=== PATIENT | male | born 1945 | race African-American/Black ===

== ENCOUNTER 2016-12-27 12:51 | Inpatient (IN) | payer MEDICARE, MEDICAID ==
[~2016-12-27] VITALS: Ht 172.7 cm; Wt 70.5 kg
[~2016-12-27 12:51] MED LIST: ALBU6.7H INH; CINA30 PO; CLON0.1T14 PO; COR25 PO; GLIP5TAB12 PO; HYDR100T26 PO; LEVVL SUBCUT; MELO-104 PO; NEPVIT PO; NITR0.4T SL; OXYC-103 PO; P20 PO
[2016-12-27] MEDS ORDERED: ALBUTEROL (0.083%) 2.5MG/3ML NEB HHN STA (14:12)
[2016-12-27] MEDS ORDERED: IPRATROPIUM BROMIDE (0.02%) 0.5MG/2.5ML NEB HHN STA (14:12)
[2016-12-27] MEDS ORDERED: ALBUTEROL (0.083%) 2.5MG/3ML NEB ONE (14:29)
[2016-12-27 15:10] LABS: PROTHROMBIN TIME 10.9 sec (9.4-11.6)
[2016-12-27 15:12] LABS: BASOPHILS % 0.6 % (0.0-2.0); EOSINOPHILS % 5.4 % (0.0-5.0); HEMATOCRIT. 31.4 % (42.0-52.0); HEMOGLOBIN. 10.7 g/dL (14.0-18.0); LYMPHOCYTES % 32.4 % (20.0-50.0); MEAN CORPUSCULAR HEMOGLOBIN 31.9 pg (28.0-32.0); MEAN CORPUSCULAR VOLUME 93.7 fL (80.0-94.0); MEAN PLATELET VOLUME 8.2 fl (7.4-10.4); MONOCYTES % 12.8 % (2.0-8.0); NEUTROPHILS % 48.8 % (40.0-76.0); PLATELET 138 x1000/uL (130-400); RED BLOOD CELL COUNT 3.35 mill/uL (4.7-6.1); RED CELL DISTRIBUTION WIDTH 20.4 % (11.6-14.6)
[2016-12-27 15:16] LABS: CARBON DIOXIDE 30 mEq/L (21-32); CHLORIDE 96 mEq/L (98-107); PHOSPHORUS 3.9 mg/dL (2.5-4.9)
[2016-12-27 15:18] LABS: TROPONIN I 0.03 ng/mL (0.00-0.04)
[2016-12-27 18:22] VITALS: BP 177/102
[2016-12-27] MEDS ORDERED: CLONIDINE 0.1MG TABLET PO PRN ×2 (18:30→22:30)
[2016-12-27 19:40] VITALS: BP 152/95
[2016-12-27 20:00] VITALS: BP 152/95
[2016-12-27] MEDS: INSULIN LISPRO 100 UNITS/ML SUBCUT SCH (21:00)
[2016-12-27] MEDS: METOPROLOL TARTRATE 50MG TABLET PO SCH (21:33)
[2016-12-27] MEDS: BLOOD SUGAR DIAGNOSTIC STRIP TEST SCH (21:34)
[2016-12-27] MEDS ORDERED: ALBUTEROL 6.7GM HFA INHALER INH PRN (22:00)
[2016-12-27] MEDS ORDERED: ALBUTEROL (0.083%) 2.5MG/3ML NEB HHN PRN (22:00)
[2016-12-27] MEDS ORDERED: NITROGLYCERIN 0.4MG TABLET SL SL PRN (22:00)
[2016-12-27] MEDS ORDERED: IPRATROPIUM/ALBUTEROL 0.5-3(2.5)MG/3ML NEB INH PRN (22:30)
[2016-12-27] MEDS ORDERED: HYDROCODONE/ACETAMINOPHEN 5/325MG TABLET PO PRN (22:30)
[2016-12-27] MEDS ORDERED: MORPHINE SULFATE 2 MG/ML CPJ (NOT FOR IM USE) IV PRN (22:30)
[2016-12-27] MEDS: CLONIDINE 0.1MG TABLET PO SCH (22:44)
[2016-12-27] MEDS: INSULIN DETEMIR UD 100 UNITS/ML SYR SUBCUT SCH (22:45)
[2016-12-28] VITALS (7 sets, daily range): BP systolic 110–217; BP diastolic 56–106
[2016-12-28] MEDS: CLONIDINE 0.1MG TABLET PO SCH ×3 (06:04→21:46)
[2016-12-28] MEDS ORDERED: REGADENOSON 0.4 MG/5 ML IV ONE (06:45)
[2016-12-28] MEDS: INSULIN LISPRO 100 UNITS/ML SUBCUT SCH ×4 (07:22→21:47)
[2016-12-28] MEDS: BLOOD SUGAR DIAGNOSTIC STRIP TEST SCH ×4 (07:22→21:47)
[2016-12-28 07:53] LABS: TROPONIN I 0.04 ng/mL (0.00-0.04)
[2016-12-28] MEDS: ENOXAPARIN 30MG/0.3ML SYR SUBCUT SCH (08:25)
[2016-12-28] MEDS: CINACALCET HCL 30MG TABLET PO SCH (08:25)
[2016-12-28] MEDS: FOLIC ACID/VITAMIN B COMP W-C TABLET PO SCH (08:25)
[2016-12-28] MEDS: AMLODIPINE 5MG TABLET PO SCH (08:26)
[2016-12-28] MEDS: PREDNISONE 20MG TABLET PO SCH (08:26)
[2016-12-28] MEDS: GLIPIZIDE 5MG TABLET PO SCH ×2 (08:26→18:36)
[2016-12-28] MEDS: MELOXICAM 7.5MG TABLET PO SCH (08:26)
[2016-12-28] MEDS: FOLIC ACID 1MG TABLET PO SCH (08:26)
[2016-12-28] MEDS: ASPIRIN 81MG EC TABLET PO SCH (08:26)
[2016-12-28] MEDS: HYDRALAZINE HCL 100MG TABLET PO SCH ×3 (08:27→17:00)
[2016-12-28] MEDS: METOPROLOL TARTRATE 50MG TABLET PO SCH ×2 (08:27→21:46)
[2016-12-28] MEDS ORDERED: CARVEDILOL 25MG TABLET PO SCH (09:00)
[2016-12-28] MEDS ORDERED: HEPARIN SODIUM 1,000 UNIT/1ML VIAL IV NR (18:35)
[2016-12-28 18:39] LABS: TROPONIN I 0.02 ng/mL (0.00-0.04)
[2016-12-28 18:40] LABS: CREATINE KINASE MB FRACTION 3.3 ng/mL (0.5-3.6)
[2016-12-28] MEDS: INSULIN DETEMIR UD 100 UNITS/ML SYR SUBCUT SCH (21:46)
[2016-12-28] MEDS: ATORVASTATIN CALCIUM 10MG TABLET PO SCH (21:48)
[2016-12-29] VITALS: BP 123/77
[2016-12-29 04:00] VITALS: BP 116/77
[2016-12-29] MEDS: CLONIDINE 0.1MG TABLET PO SCH ×3 (06:35→21:19)
[2016-12-29 07:33] LABS: BASOPHILS % 0.1 % (0.0-2.0); EOSINOPHILS % 0.4 % (0.0-5.0); HEMOGLOBIN. 11.3 g/dL (14.0-18.0); LYMPHOCYTES % 30.6 % (20.0-50.0); MEAN CORPUSCULAR HEMOGLOBIN 31.8 pg (28.0-32.0); MEAN CORPUSCULAR VOLUME 92.7 fL (80.0-94.0); MEAN PLATELET VOLUME 8.5 fl (7.4-10.4); MONOCYTES % 11.8 % (2.0-8.0); NEUTROPHILS % 57.1 % (40.0-76.0); PLATELET 132 x1000/uL (130-400); RED BLOOD CELL COUNT 3.56 mill/uL (4.7-6.1); RED CELL DISTRIBUTION WIDTH 20.3 % (11.6-14.6)
[2016-12-29] MEDS: BLOOD SUGAR DIAGNOSTIC STRIP TEST SCH ×4 (07:40→20:26)
[2016-12-29 08:00] VITALS: BP 134/61
[2016-12-29 08:35] LABS: TROPONIN I 0.03 ng/mL (0.00-0.04)
[2016-12-29] MEDS: FOLIC ACID/VITAMIN B COMP W-C TABLET PO SCH (10:18)
[2016-12-29] MEDS: GLIPIZIDE 5MG TABLET PO SCH ×2 (10:18→17:51)
[2016-12-29] MEDS: HYDRALAZINE HCL 100MG TABLET PO SCH ×3 (10:19→17:53)
[2016-12-29] MEDS: FOLIC ACID 1MG TABLET PO SCH (10:20)
[2016-12-29] MEDS: CINACALCET HCL 30MG TABLET PO SCH (10:20)
[2016-12-29] MEDS: AMLODIPINE 5MG TABLET PO SCH (10:20)
[2016-12-29] MEDS: PREDNISONE 20MG TABLET PO SCH (10:21)
[2016-12-29] MEDS: ASPIRIN 81MG EC TABLET PO SCH (10:21)
[2016-12-29] MEDS: MELOXICAM 7.5MG TABLET PO SCH (10:21)
[2016-12-29] MEDS: INSULIN LISPRO 100 UNITS/ML SUBCUT SCH ×4 (10:23→21:33)
[2016-12-29] MEDS: ENOXAPARIN 30MG/0.3ML SYR SUBCUT SCH (10:23)
[2016-12-29] MEDS: METOPROLOL TARTRATE 50MG TABLET PO SCH ×2 (10:31→20:36)
[2016-12-29 12:00] VITALS: BP 126/73
[2016-12-29 20:00] VITALS: BP 111/68
[2016-12-29] MEDS: ATORVASTATIN CALCIUM 10MG TABLET PO SCH (20:36)
[2016-12-29] MEDS: ACETAMINOPHEN 325MG TABLET PO PRN (20:37)
[2016-12-29] MEDS: INSULIN DETEMIR UD 100 UNITS/ML SYR SUBCUT SCH (21:33)
[2016-12-30] VITALS: BP 130/79
[2016-12-30] MEDS: ONDANSETRON HCL 4MG/2ML VIAL IV PRN (00:57)
[2016-12-30 04:00] VITALS: BP 130/74
[2016-12-30] MEDS: CLONIDINE 0.1MG TABLET PO SCH ×3 (06:00→21:47)
[2016-12-30] MEDS: BLOOD SUGAR DIAGNOSTIC STRIP TEST SCH ×4 (06:23→21:47)
[2016-12-30 06:44] LABS: BASOPHILS % 0.1 % (0.0-2.0); EOSINOPHILS % 0.1 % (0.0-5.0); HEMATOCRIT. 33.6 % (42.0-52.0); HEMOGLOBIN. 11.3 g/dL (14.0-18.0); LYMPHOCYTES % 22.5 % (20.0-50.0); MEAN CORPUSCULAR HEMOGLOBIN 31.1 pg (28.0-32.0); MEAN CORPUSCULAR VOLUME 92.2 fL (80.0-94.0); MEAN PLATELET VOLUME 8.6 fl (7.4-10.4); MONOCYTES % 6.9 % (2.0-8.0); NEUTROPHILS % 70.4 % (40.0-76.0); PLATELET 161 x1000/uL (130-400); RED BLOOD CELL COUNT 3.64 mill/uL (4.7-6.1); RED CELL DISTRIBUTION WIDTH 20.3 % (11.6-14.6)
[2016-12-30] MEDS: GLIPIZIDE 5MG TABLET PO SCH ×2 (07:40→18:16)
[2016-12-30 07:48] LABS: PHOSPHORUS 6.8 mg/dL (2.5-4.9)
[2016-12-30 08:00] VITALS: BP 154/78
[2016-12-30] MEDS: INSULIN LISPRO 100 UNITS/ML SUBCUT SCH ×4 (08:10→21:49)
[2016-12-30] MEDS: FOLIC ACID 1MG TABLET PO SCH (09:00)
[2016-12-30] MEDS: PREDNISONE 20MG TABLET PO SCH (09:00)
[2016-12-30] MEDS: METOPROLOL TARTRATE 50MG TABLET PO SCH ×2 (09:00→21:47)
[2016-12-30] MEDS: CINACALCET HCL 30MG TABLET PO SCH (09:00)
[2016-12-30] MEDS: AMLODIPINE 5MG TABLET PO SCH (09:00)
[2016-12-30] MEDS: ASPIRIN 81MG EC TABLET PO SCH (09:00)
[2016-12-30] MEDS: ENOXAPARIN 30MG/0.3ML SYR SUBCUT SCH (09:00)
[2016-12-30] MEDS: HYDRALAZINE HCL 100MG TABLET PO SCH ×3 (09:00→17:00)
[2016-12-30] MEDS: MELOXICAM 7.5MG TABLET PO SCH (09:00)
[2016-12-30] MEDS: FOLIC ACID/VITAMIN B COMP W-C TABLET PO SCH (09:00)
[2016-12-30] MEDS ORDERED: REGADENOSON 0.4 MG/5 ML IV ONE (09:16)
[2016-12-30] MEDS: ACETAMINOPHEN 325MG TABLET PO PRN (10:51)
[2016-12-30 12:00] VITALS: BP 150/78
[2016-12-30 16:00] VITALS: BP 146/72
[2016-12-30 20:00] VITALS: BP_SYST 114; BP_SYST 147; BP_DIAS 72; BP_DIAS 91
[2016-12-30] MEDS: ATORVASTATIN CALCIUM 10MG TABLET PO SCH (21:47)
[2016-12-30] MEDS: INSULIN DETEMIR UD 100 UNITS/ML SYR SUBCUT SCH (21:49)
[2016-12-31] VITALS (8 sets, daily range): BP systolic 96–175; BP diastolic 60–87
[2016-12-31] MEDS: DEXT 5%/0.9% NACL 1,000 ML IV SCH (00:40)
[2016-12-31] MEDS: CLONIDINE 0.1MG TABLET PO SCH ×2 (06:18→21:51)
[2016-12-31] MEDS: BLOOD SUGAR DIAGNOSTIC STRIP TEST SCH ×4 (07:40→21:51)
[2016-12-31] MEDS: INSULIN LISPRO 100 UNITS/ML SUBCUT SCH ×4 (08:10→21:49)
[2016-12-31] MEDS: AMLODIPINE 5MG TABLET PO SCH (09:00)
[2016-12-31] MEDS: DEXTROSE 50% WATER 50ML SYRINGE IV PRN (12:51)
[2016-12-31] MEDS ORDERED: FAMOTIDINE 20MG/2ML VIAL IV ONE (14:06)
[2016-12-31] MEDS ORDERED: LIDOCAINE HCL 1% 20ML VIAL (Pyxis) INJ ONE (14:06)
[2016-12-31] MEDS ORDERED: HYDROCORTISONE SOD SUCCINATE 250 MG/2 ML VIAL ONE (14:06)
[2016-12-31] MEDS ORDERED: IOHEXOL-300 100 ML BOTTLE ONE (14:06)
[2016-12-31] MEDS ORDERED: DIPHENHYDRAMINE 50MG/ML VIAL ONE (14:06)
[2016-12-31] MEDS ORDERED: HEPARIN SODIUM 1,000 UNIT/1ML VIAL IV ONE (14:07)
[2016-12-31] MEDS ORDERED: FENTANYL CITRATE/PF 50MCG/ML 2ML VIAL ONE (14:14)
[2016-12-31] MEDS ORDERED: MIDAZOLAM HCL 2 MG/2 ML VIAL ONE (14:14)
[2016-12-31] MEDS ORDERED: ATROPINE SULFATE 0.1MG/ML 10ML DISP.SYRIN ONE (14:58)
[2016-12-31] MEDS ORDERED: CLOPIDOGREL 75MG TABLET ONE (15:36)
[2016-12-31] MEDS ORDERED: ATROPINE SULFATE 1MG/10ML SYR IV PRN (15:45)
[2016-12-31] MEDS ORDERED: ENOXAPARIN 60MG/0.6ML SYR SUBCUT NR (16:00)
[2016-12-31] MEDS: HYDRALAZINE HCL 100MG TABLET PO SCH (18:00)
[2016-12-31] MEDS: GLIPIZIDE 5MG TABLET PO SCH (18:21)
[2016-12-31] MEDS: ATORVASTATIN CALCIUM 10MG TABLET PO SCH (21:00)
[2016-12-31] MEDS: METOPROLOL TARTRATE 50MG TABLET PO SCH (21:00)
[2016-12-31] MEDS: INSULIN DETEMIR UD 100 UNITS/ML SYR SUBCUT SCH (21:49)
[2016-12-31] MEDS: NITROGLYCERIN OINT 1GM/INCH UDPKT TD SCH (21:50)
[2017-01-01] VITALS (21 sets, daily range): BP systolic 105–150; BP diastolic 49–86
[2017-01-01] MEDS: DEXT 5%/0.9% NACL 1,000 ML IV SCH (01:05)
[2017-01-01] MEDS: CLONIDINE 0.1MG TABLET PO SCH ×3 (05:11→23:59)
[2017-01-01] MEDS: NITROGLYCERIN OINT 1GM/INCH UDPKT TD SCH ×2 (05:12→14:00)
[2017-01-01] MEDS: GLIPIZIDE 5MG TABLET PO SCH ×2 (05:45→16:50)
[2017-01-01] MEDS: BLOOD SUGAR DIAGNOSTIC STRIP TEST SCH ×4 (05:47→23:46)
[2017-01-01] MEDS: INSULIN LISPRO 100 UNITS/ML SUBCUT SCH ×3 (05:47→17:20)
[2017-01-01 07:13] LABS: BASOPHILS % 0.1 % (0.0-2.0); EOSINOPHILS % 0.3 % (0.0-5.0); HEMATOCRIT. 32.9 % (42.0-52.0); HEMOGLOBIN. 11.1 g/dL (14.0-18.0); MEAN CORPUSCULAR HEMOGLOBIN 31.2 pg (28.0-32.0); MEAN CORPUSCULAR VOLUME 92.3 fL (80.0-94.0); MEAN PLATELET VOLUME 8.5 fl (7.4-10.4); MONOCYTES % 14.4 % (2.0-8.0); NEUTROPHILS % 54.2 % (40.0-76.0); PLATELET 140 x1000/uL (130-400); RED BLOOD CELL COUNT 3.57 mill/uL (4.7-6.1); RED CELL DISTRIBUTION WIDTH 20.2 % (11.6-14.6)
[2017-01-01] MEDS: FOLIC ACID 1MG TABLET PO SCH (09:00)
[2017-01-01] MEDS: CLOPIDOGREL 75MG TABLET PO SCH (09:38)
[2017-01-01] MEDS: ASPIRIN 81MG EC TABLET PO SCH (09:39)
[2017-01-01] MEDS: HYDRALAZINE HCL 100MG TABLET PO SCH ×3 (09:40→17:00)
[2017-01-01] MEDS: METOPROLOL TARTRATE 50MG TABLET PO SCH (09:40)
[2017-01-01] MEDS: DEXTROSE 50% WATER 50ML SYRINGE IV PRN (12:08)
[2017-01-01] MEDS ORDERED: NICARDIPINE 100MCG/ML 10ML VIAL (CATH LAB) IV ONE (12:34)
[2017-01-01] MEDS ORDERED: NITROGLYCERIN 50MCG/ML 10ML VIAL (CATH LAB) IV ONE (12:34)
[2017-01-01] MEDS ORDERED: MIDAZOLAM HCL 2 MG/2 ML VIAL ONE (13:26)
[2017-01-01] MEDS ORDERED: DIPHENHYDRAMINE 50MG/ML VIAL ONE (13:26)
[2017-01-01] MEDS ORDERED: FENTANYL CITRATE/PF 50MCG/ML 2ML VIAL ONE (13:26)
[2017-01-01] MEDS ORDERED: HYDROCORTISONE SOD SUCCINATE 250 MG/2 ML VIAL ONE (13:26)
[2017-01-01] MEDS ORDERED: LIDOCAINE HCL 1% 20ML VIAL (Pyxis) INJ ONE (13:27)
[2017-01-01] MEDS ORDERED: FAMOTIDINE 20MG/2ML VIAL IV ONE (13:27)
[2017-01-01] MEDS ORDERED: IOHEXOL-300 100 ML BOTTLE ONE ×2 (13:31→14:40)
[2017-01-01] MEDS ORDERED: VERAPAMIL HCL 2.5 MG/1 ML 2ML VIAL IV ONE (13:39)
[2017-01-01] MEDS ORDERED: HEPARIN SODIUM 1,000 UNIT/1ML VIAL IV ONE (13:53)
[2017-01-01] MEDS ORDERED: ATROPINE SULFATE 0.1MG/ML 10ML DISP.SYRIN ONE (13:56)
[2017-01-01] MEDS ORDERED: IOVERSOL 240MG/ML 100ML BOTTLE IV ONE (14:01)
[2017-01-01] MEDS ORDERED: CLOPIDOGREL 75MG TABLET ONE (15:00)
[2017-01-01] MEDS ORDERED: CLOPIDOGREL 75MG TABLET PO ONE (15:15)
[2017-01-01] MEDS: ONDANSETRON HCL 4MG/2ML VIAL IV PRN (21:35)
[2017-01-01] MEDS: SODIUM CHLORIDE 0.45% 1,000 ML IV SCH (23:55)
[2017-01-01] MEDS: ATORVASTATIN CALCIUM 10MG TABLET PO SCH (23:55)
[2017-01-02] VITALS (12 sets, daily range): BP systolic 97–181; BP diastolic 50–79
[2017-01-02] MEDS: INSULIN LISPRO 100 UNITS/ML SUBCUT SCH ×3 (00:01→13:17)
[2017-01-02] MEDS: INSULIN DETEMIR UD 100 UNITS/ML SYR SUBCUT SCH (00:02)
[2017-01-02] MEDS: CLONIDINE 0.1MG TABLET PO SCH ×2 (06:00→13:29)
[2017-01-02] MEDS: BLOOD SUGAR DIAGNOSTIC STRIP TEST SCH ×2 (06:43→11:50)
[2017-01-02] MEDS: NITROGLYCERIN OINT 1GM/INCH UDPKT TD SCH ×3 (06:47→13:30)
[2017-01-02] MEDS: GLIPIZIDE 5MG TABLET PO SCH (06:47)
[2017-01-02] MEDS: SODIUM CHLORIDE 0.45% 1,000 ML IV SCH ×2 (06:58→13:31)
[2017-01-02] MEDS: CLOPIDOGREL 75MG TABLET PO SCH (08:00)
[2017-01-02] MEDS: PREDNISONE 20MG TABLET PO SCH ×2 (08:00→09:00)
[2017-01-02] MEDS: CINACALCET HCL 30MG TABLET PO SCH ×2 (08:01→09:00)
[2017-01-02] MEDS: MELOXICAM 7.5MG TABLET PO SCH ×2 (08:01→09:00)
[2017-01-02] MEDS: ASPIRIN 81MG EC TABLET PO SCH (08:01)
[2017-01-02] MEDS: FOLIC ACID 1MG TABLET PO SCH ×2 (08:01→09:00)
[2017-01-02] MEDS: FOLIC ACID/VITAMIN B COMP W-C TABLET PO SCH ×2 (08:01→09:00)
[2017-01-02] MEDS: METOPROLOL TARTRATE 50MG TABLET PO SCH ×2 (08:04)
[2017-01-02] MEDS: HYDRALAZINE HCL 100MG TABLET PO SCH ×2 (08:04→13:29)
[2017-01-02 08:18] LABS: BASOPHILS % 0.1 % (0.0-2.0); EOSINOPHILS % 0.2 % (0.0-5.0); HEMATOCRIT. 32.9 % (42.0-52.0); HEMOGLOBIN. 11.2 g/dL (14.0-18.0); LYMPHOCYTES % 24.7 % (20.0-50.0); MEAN CORPUSCULAR HEMOGLOBIN 32.1 pg (28.0-32.0); MEAN PLATELET VOLUME 8.7 fl (7.4-10.4); MONOCYTES % 11.7 % (2.0-8.0); NEUTROPHILS % 63.3 % (40.0-76.0); PLATELET 130 x1000/uL (130-400); RED CELL DISTRIBUTION WIDTH 20.8 % (11.6-14.6)
[2017-01-02] MEDS: AMLODIPINE 5MG TABLET PO SCH (09:00)
== END 2017-01-02 16:25 | disposition home or self-care (01) | DRG 246 ==
LOC: ER 12:51 → 7WST 14:30 → EDBEDREQ 14:31 → ENRESERV 16:54 → 3WST 12-31 15:21
PROVIDERS: ADMIT Internal Medicine Nephrology; ATTEND Internal Medicine Nephrology
PROC: 5A1D70Z Performance of Urinary Filtration, Intermittent, Less than 6 Hours Per Day (ICD-10-PCS; 2016-12-30)
PROC: 4A023N7 Measurement of Cardiac Sampling and Pressure, Left Heart, Percutaneous Approach (ICD-10-PCS; principal; 2016-12-31)
PROC: B2111ZZ Fluoroscopy of Multiple Coronary Arteries using Low Osmolar Contrast (ICD-10-PCS; 2016-12-31)
PROC: B2151ZZ Fluoroscopy of Left Heart using Low Osmolar Contrast (ICD-10-PCS; 2016-12-31)
PROC: 027035Z Dilation of Coronary Artery, One Artery with Two Drug-eluting Intraluminal Devices, Percutaneous Approach (ICD-10-PCS; 2017-01-01)
PROC: X2C0361 Extirpation of Matter from Coronary Artery, One Artery using Orbital Atherectomy Technology, Percutaneous Approach, New Technology Group 1 (ICD-10-PCS; 2017-01-01)
PROC: 5A1D70Z Performance of Urinary Filtration, Intermittent, Less than 6 Hours Per Day (ICD-10-PCS; 2017-01-01)
DX: I25.110 Atherosclerotic heart disease of native coronary artery with unstable angina pectoris (principal); I50.33 Acute on chronic diastolic (congestive) heart failure; J96.00 Acute respiratory failure, unspecified whether with hypoxia or hypercapnia; I13.2 Hypertensive heart and chronic kidney disease with heart failure and with stage 5 chronic kidney disease, or end stage renal disease; N18.6 End stage renal disease; E87.70 Fluid overload, unspecified; D72.819 Decreased white blood cell count, unspecified; E11.22 Type 2 diabetes mellitus with diabetic chronic kidney disease; E78.5 Hyperlipidemia, unspecified; I25.2 Old myocardial infarction; Z79.02 Long term (current) use of antithrombotics/antiplatelets; Z79.4 Long term (current) use of insulin; Z79.82 Long term (current) use of aspirin; Z79.899 Other long term (current) drug therapy; Z91.19 Patient's noncompliance with other medical treatment and regimen; Z95.5 Presence of coronary angioplasty implant and graft; Z99.2 Dependence on renal dialysis; Z91.041 Radiographic dye allergy status
CPT/HCPCS: 36415; 71010; 78452; 80048; 80053; 82550; 82553; 82962; 83690; 83735; 84100; 84443; 84484; 85025; 85347; 85379; 85610; 85730; 87040; 92933; 93005; 93017; 93306; 93454; 93458; 93970; 94640; 97162; 99285; A9500; C1725; C1760; C1769; C1887; C1893; J0461; J1200; J1644; J1650; J1720; J1815; J2250; J2405; J2785; J3010; J3490; J7030; J7042; J7512; J7611; Q9967

== ENCOUNTER 2017-04-13 15:59 | Inpatient (IN) | payer MEDICARE, MEDICAID ==
[~2017-04-13] VITALS: Ht 162.6 cm; Wt 75.8 kg
[~2017-04-13 15:59] MED LIST changes: -COR25 PO
[2017-04-13 18:06] LABS: BASOPHILS % 0.4 % (0.0-2.0); EOSINOPHILS % 1.9 % (0.0-5.0); HEMATOCRIT. 27.5 % (42.0-52.0); LYMPHOCYTES % 28.2 % (20.0-50.0); MEAN CORPUSCULAR VOLUME 97.1 fL (80.0-94.0); MEAN PLATELET VOLUME 8.6 fl (7.4-10.4); MONOCYTES % 8.4 % (2.0-8.0); NEUTROPHILS % 61.1 % (40.0-76.0); PLATELET 182 x1000/uL (130-400); RED BLOOD CELL COUNT 2.83 mill/uL (4.7-6.1); RED CELL DISTRIBUTION WIDTH 22.5 % (11.6-14.6)
[2017-04-13] MEDS ORDERED: ASPIRIN 325MG TABLET PO STA (18:11)
[2017-04-13 18:13] LABS: CHLORIDE 100 mEq/L (98-107)
[2017-04-13] MEDS: METOPROLOL TARTRATE 5MG/5ML VIAL IV SCH ×3 (18:20→20:12)
[2017-04-13 18:21] LABS: CARBON DIOXIDE 26 mEq/L (21-32)
[2017-04-13 18:24] LABS: TROPONIN I 0.02 ng/mL (0.00-0.04)
[2017-04-13 18:36] LABS: PLATELET ESTIMATE NORMAL
[2017-04-13] MEDS ORDERED: METOPROLOL TARTRATE 25MG TABLET PO ONE (19:30)
[2017-04-13] MEDS ORDERED: CLONIDINE 0.1MG TABLET PO PRN (23:11)
[2017-04-13] MEDS ORDERED: IPRATROPIUM/ALBUTEROL 0.5-3(2.5)MG/3ML NEB HHN PRN (23:15)
[2017-04-13] MEDS ORDERED: DEXTROSE 50% WATER 50ML SYRINGE IV PRN (23:15)
[2017-04-14 05:17] LABS: BASOPHILS % 0.5 % (0.0-2.0); EOSINOPHILS % 3.9 % (0.0-5.0); HEMATOCRIT. 23.8 % (42.0-52.0); LYMPHOCYTES % 28.6 % (20.0-50.0); MEAN CORPUSCULAR HEMOGLOBIN 32.6 pg (28.0-32.0); MEAN CORPUSCULAR VOLUME 96.9 fL (80.0-94.0); MEAN PLATELET VOLUME 8.4 fl (7.4-10.4); MONOCYTES % 8.7 % (2.0-8.0); NEUTROPHILS % 58.3 % (40.0-76.0); PLATELET 160 x1000/uL (130-400); RED BLOOD CELL COUNT 2.45 mill/uL (4.7-6.1); RED CELL DISTRIBUTION WIDTH 23.1 % (11.6-14.6)
[2017-04-14 05:40] LABS: CARBON DIOXIDE 24 mEq/L (21-32); CHLORIDE 102 mEq/L (98-107)
[2017-04-14] MEDS ORDERED: INSULIN LISPRO (MEDIUM DOSE) 100 UNITS/ML SUBCUT SCH (08:20)
[2017-04-14] MEDS ORDERED: ENOXAPARIN 30MG/0.3ML SYR SUBCUT SCH (09:00)
[2017-04-14] MEDS ORDERED: BLOOD SUGAR DIAGNOSTIC STRIP TEST SCH ×2 (09:00→12:40)
[2017-04-14 09:15] VITALS: BP 195/94
[2017-04-14] MEDS ORDERED: DEXTROSE 50% WATER 50ML SYRINGE IV PRN (11:00)
[2017-04-14 12:00] VITALS: BP_SYST 139; BP_DIAS 80; BP_DIAS 82
[2017-04-14] MEDS ORDERED: INSULIN LISPRO 100 UNITS/ML SUBCUT SCH (13:10)
== END 2017-04-14 14:25 | disposition left against medical advice (07) | DRG 291 ==
LOC: ER 15:59 → 7WST 04-14 08:21
PROVIDERS: ADMIT Internal Medicine Nephrology; ATTEND Internal Medicine Nephrology
DX: I13.2 Hypertensive heart and chronic kidney disease with heart failure and with stage 5 chronic kidney disease, or end stage renal disease (principal); I50.31 Acute diastolic (congestive) heart failure; E11.22 Type 2 diabetes mellitus with diabetic chronic kidney disease; N18.6 End stage renal disease; I16.0 Hypertensive urgency; D63.8 Anemia in other chronic diseases classified elsewhere; Z53.21 Procedure and treatment not carried out due to patient leaving prior to being seen by health care provider; R94.31 Abnormal electrocardiogram [ECG] [EKG]; Z95.5 Presence of coronary angioplasty implant and graft; Z99.2 Dependence on renal dialysis; Z79.4 Long term (current) use of insulin; Z79.899 Other long term (current) drug therapy; Z91.041 Radiographic dye allergy status; Z88.8 Allergy status to other drugs, medicaments and biological substances
CPT/HCPCS: 36415; 71045; 80053; 82962; 84484; 85025; 93005; 96374; 99291; J1650; J3490; J7030

== ENCOUNTER 2017-07-10 06:37 | Inpatient (IN) | payer MEDICARE, MEDICAID ==
[~2017-07-10] VITALS: Ht 162.6 cm; Wt 68.0 kg
[~2017-07-10 06:37] MED LIST changes: -ALBU6.7H INH; +AMLO5TAB4 PO; +ASPI-1159 PO; +ATOR10TA69 PO; +CALC667T5 PO; +CARV25TA47 PO; -CINA30 PO; +CINA60 PO; +CLON0.1T PO; -CLON0.1T14 PO; +CLOP75TA33 PO; +HEPARIN SODIUM 1,000 UNIT/1ML VIAL IV ONE; -HYDR100T26 PO; +ISOS30TA12 PO; -LEVVL SUBCUT; -MELO-104 PO; -NEPVIT PO; +NICARDIPINE 100MCG/ML 10ML VIAL (CATH LAB) IV ONE; -NITR0.4T SL; +NITR0.4T49 SL; +NITROGLYCERIN 50MCG/ML 10ML VIAL (CATH LAB) IV ONE; -OXYC-103 PO; -P20 PO; +TRAM50TA3 PO
[2017-07-10] MEDS ORDERED: IODIXANOL 320MG/ML 100 ML BOTTLE IV ONE ×2 (07:45→09:24)
[2017-07-10] MEDS ORDERED: LIDOCAINE HCL/PF 1% 10 MG/ML 5ML VIAL ONE (07:46)
[2017-07-10] MEDS ORDERED: DIPHENHYDRAMINE 50MG/ML VIAL ONE (08:24)
[2017-07-10] MEDS ORDERED: HYDROCORTISONE SOD SUCCINATE 250 MG/2 ML VIAL ONE (08:24)
[2017-07-10] MEDS ORDERED: FAMOTIDINE 20MG/2ML VIAL IV ONE (08:24)
[2017-07-10] MEDS ORDERED: MIDAZOLAM HCL 2 MG/2 ML VIAL ONE (08:28)
[2017-07-10] MEDS ORDERED: FENTANYL CITRATE/PF 50MCG/ML 2ML VIAL ONE (08:28)
[2017-07-10] MEDS ORDERED: IOHEXOL-300 100 ML BOTTLE ONE (09:09)
[2017-07-10] MEDS ORDERED: CLOPIDOGREL 75MG TABLET ONE (10:09)
[2017-07-10] MEDS ORDERED: ASPIRIN 325MG TABLET ONE (10:09)
[2017-07-10] MEDS ORDERED: ACETAMINOPHEN 325MG TABLET PO PRN (10:15)
[2017-07-10] MEDS ORDERED: ATROPINE SULFATE 1MG/10ML SYR IV PRN (10:15)
[2017-07-10] MEDS ORDERED: ONDANSETRON HCL 4MG/2ML VIAL IV PRN (10:15)
[2017-07-10] MEDS ORDERED: MORPHINE SULFATE 2 MG/ML CPJ (NOT FOR IM USE) IV PRN (10:15)
[2017-07-10 14:51] VITALS: BP 154/102
[2017-07-10 15:18] VITALS: BP 154/102
[2017-07-10] MEDS ORDERED: ZOLPIDEM TARTRATE 5MG TABLET PO PRN (15:45)
[2017-07-10 16:00] VITALS: BP 121/75
[2017-07-10 18:00] VITALS: BP 160/132
[2017-07-10] MEDS ORDERED: DEXTROSE 50% WATER 50ML SYRINGE IV PRN (19:45)
[2017-07-10] MEDS ORDERED: CLONIDINE 0.1MG TABLET PO PRN (19:45)
[2017-07-10 20:00] VITALS: BP 139/84
[2017-07-10] MEDS: BLOOD SUGAR DIAGNOSTIC STRIP TEST SCH (21:48)
[2017-07-10] MEDS: INSULIN LISPRO 100 UNITS/ML SUBCUT SCH (21:48)
[2017-07-10 22:00] VITALS: BP 151/93
[2017-07-11] VITALS: BP 142/78
[2017-07-11 02:00] VITALS: BP 140/75
[2017-07-11 04:00] VITALS: BP 159/71
[2017-07-11 06:00] VITALS: BP 159/70
[2017-07-11] MEDS: BLOOD SUGAR DIAGNOSTIC STRIP TEST SCH (06:59)
[2017-07-11] MEDS: INSULIN LISPRO 100 UNITS/ML SUBCUT SCH (07:20)
[2017-07-11 07:53] LABS: HEMATOCRIT. 28.7 % (42.0-52.0); HEMOGLOBIN. 9.8 g/dL (14.0-18.0); MEAN CORPUSCULAR HEMOGLOBIN 32.6 pg (28.0-32.0); MEAN CORPUSCULAR VOLUME 95.7 fL (80.0-94.0); MEAN PLATELET VOLUME 8.5 fl (7.4-10.4); PLATELET 206 x1000/uL (130-400); RED CELL DISTRIBUTION WIDTH 15.7 % (11.6-14.6)
[2017-07-11] MEDS ORDERED: CLOPIDOGREL 75MG TABLET PO SCH (09:00)
[2017-07-11] MEDS ORDERED: ASPIRIN 325MG TABLET PO SCH (09:00)
[2017-07-11 09:51] VITALS: BP 164/64
[2017-07-11 10:00] VITALS: BP 153/82
[2017-07-13 01:32] LABS: PLATELET ESTIMATE NORMAL
== END 2017-07-11 11:19 | disposition home or self-care (01) | DRG 246 ==
LOC: CCL 06:37 → 3WST 06:38
PROVIDERS: ADMIT Specialist; ATTEND Specialist
PROC: 027035Z Dilation of Coronary Artery, One Artery with Two Drug-eluting Intraluminal Devices, Percutaneous Approach (ICD-10-PCS; 2017-07-10)
PROC: B2111ZZ Fluoroscopy of Multiple Coronary Arteries using Low Osmolar Contrast (ICD-10-PCS; 2017-07-10)
PROC: 4A023N7 Measurement of Cardiac Sampling and Pressure, Left Heart, Percutaneous Approach (ICD-10-PCS; principal; 2017-07-10 11:00)
DX: T82.855A Stenosis of coronary artery stent, initial encounter (principal); N18.6 End stage renal disease; E11.22 Type 2 diabetes mellitus with diabetic chronic kidney disease; I13.11 Hypertensive heart and chronic kidney disease without heart failure, with stage 5 chronic kidney disease, or end stage renal disease; I25.110 Atherosclerotic heart disease of native coronary artery with unstable angina pectoris; Y83.1 Surgical operation with implant of artificial internal device as the cause of abnormal reaction of the patient, or of later complication, without mention of misadventure at the time of the procedure; E78.5 Hyperlipidemia, unspecified; I25.2 Old myocardial infarction; Z79.02 Long term (current) use of antithrombotics/antiplatelets; Z88.8 Allergy status to other drugs, medicaments and biological substances; Z99.2 Dependence on renal dialysis
CPT/HCPCS: 36415; 80048; 82962; 85025; 85347; 92928; 93005; 93458; C1725; C1769; C1887; C1893; J1200; J1644; J1720; J1815; J2250; J3010; J3490; J7030; J7040; Q9967

== ENCOUNTER 2017-10-09 07:21 | Day surgery (SDC) | payer MEDICARE, MEDICAID ==
[~2017-10-09] VITALS: Ht 156.2 cm; Wt 71.0 kg
[~2017-10-09 07:21] MED LIST changes: +ALBU90AE IH; -HEPARIN SODIUM 1,000 UNIT/1ML VIAL IV ONE; +INSU100I19 SQ; -NICARDIPINE 100MCG/ML 10ML VIAL (CATH LAB) IV ONE; -NITROGLYCERIN 50MCG/ML 10ML VIAL (CATH LAB) IV ONE
[2017-10-09] MEDS ORDERED: SODIUM CHLORIDE 0.9% 1,000 ML IV SCH (09:00)
[2017-10-09] MEDS ORDERED: MIDAZOLAM HCL 5 MG/5 ML VIAL IV PRN (09:18)
[2017-10-09] MEDS ORDERED: FENTANYL CITRATE/PF 50MCG/ML 2ML VIAL IV PRN (09:19)
[2017-10-09] MEDS ORDERED: MIDAZOLAM HCL 5 MG/5 ML VIAL ONE (09:21)
[2017-10-09] MEDS ORDERED: FENTANYL CITRATE/PF 50MCG/ML 2ML VIAL ONE (09:21)
[2017-10-09] MEDS ORDERED: SIMETHICONE 40 MG/0.6 ML 30ML ONE (14:11)
[2017-10-09] MEDS ORDERED: SODIUM CHLORIDE 0.9% 10ML VIAL ONE (14:11)
== END 2017-10-09 12:15 | disposition home or self-care (01) ==
LOC: OR 07:21
PROVIDERS: ATTEND Internal Medicine Gastroenterology
DX: K29.60 Other gastritis without bleeding (principal); K31.7 Polyp of stomach and duodenum; K44.9 Diaphragmatic hernia without obstruction or gangrene; I25.10 Atherosclerotic heart disease of native coronary artery without angina pectoris; E11.22 Type 2 diabetes mellitus with diabetic chronic kidney disease; N18.6 End stage renal disease; E78.5 Hyperlipidemia, unspecified; I13.2 Hypertensive heart and chronic kidney disease with heart failure and with stage 5 chronic kidney disease, or end stage renal disease; I50.9 Heart failure, unspecified; R06.02 Shortness of breath; I25.2 Old myocardial infarction; Z79.02 Long term (current) use of antithrombotics/antiplatelets; Z98.61 Coronary angioplasty status; Z99.2 Dependence on renal dialysis; Z79.4 Long term (current) use of insulin; Z79.899 Other long term (current) drug therapy
CPT/HCPCS: 43235; 82962; A4216; J2250; J3010; J7040

== ENCOUNTER 2017-12-29 13:11 | Inpatient (IN) | payer MEDICARE, MEDICAID ==
[~2017-12-29] VITALS: Ht 162.6 cm; Wt 74.5 kg
[2017-12-29 15:21] LABS: BASOPHILS % 0.5 % (0.0-2.0); HEMOGLOBIN. 12.6 g/dL (14.0-18.0); MEAN CORPUSCULAR VOLUME 91.1 fL (80.0-94.0); MONOCYTES % 7.1 % (2.0-8.0); NEUTROPHILS % 73.4 % (40.0-76.0); PLATELET 173 x1000/uL (130-400); RED BLOOD CELL COUNT 4.07 mill/uL (4.7-6.1); RED CELL DISTRIBUTION WIDTH 25.1 % (11.6-14.6)
[2017-12-29 15:25] LABS: PROTHROMBIN TIME 10.2 sec (9.1-11.1)
[2017-12-29 15:29] LABS: CHLORIDE 96 mEq/L (98-107)
[2017-12-29 15:36] LABS: PHOSPHORUS 3.3 mg/dL (2.5-4.9)
[2017-12-29] MEDS ORDERED: ASPIRIN 81MG TABLET PO ONE (16:00)
[2017-12-29 16:51] LABS: PLATELET ESTIMATE NORMAL
[2017-12-29] MEDS ORDERED: AZITHROMYCIN 500 MG in DEXT 5% WATER 250 ML IV STA (19:42)
[2017-12-29] MEDS ORDERED: CEFTRIAXONE 1 G PREMIX 50 ML IV STA (19:42)
[2017-12-29] MEDS: CLONIDINE 0.1MG TABLET PO PRN (20:24)
[2017-12-29] MEDS ORDERED: ONDANSETRON HCL 4MG/2ML INJ IV PRN (22:00)
[2017-12-29] MEDS ORDERED: CLONIDINE 0.1MG TABLET PO PRN (22:00)
[2017-12-29] MEDS ORDERED: HYDROMORPHONE HCL/PF 2MG/ML CPJ IV PRN (22:00)
[2017-12-29] MEDS ORDERED: ACETAMINOPHEN 325MG TABLET PO PRN (22:00)
[2017-12-29 23:00] VITALS: BP 176/94
[2017-12-30] VITALS: BP 158/92
[2017-12-30 04:00] VITALS: BP 172/89
[2017-12-30 07:15] LABS: BASOPHILS % 0.5 % (0.0-2.0); EOSINOPHILS % 2.8 % (0.0-5.0); HEMATOCRIT. 34.2 % (42.0-52.0); HEMOGLOBIN. 11.5 g/dL (14.0-18.0); LYMPHOCYTES % 36.1 % (20.0-50.0); MEAN CORPUSCULAR HEMOGLOBIN 30.7 pg (28.0-32.0); MEAN CORPUSCULAR VOLUME 91.7 fL (80.0-94.0); MEAN PLATELET VOLUME 8.2 fl (7.4-10.4); MONOCYTES % 9.6 % (2.0-8.0); PLATELET 160 x1000/uL (130-400); RED BLOOD CELL COUNT 3.73 mill/uL (4.7-6.1); RED CELL DISTRIBUTION WIDTH 25.1 % (11.6-14.6)
[2017-12-30 08:00] VITALS: BP 188/90
[2017-12-30] MEDS: CLONIDINE 0.1MG TABLET PO PRN (08:50)
[2017-12-30] MEDS ORDERED: GLIPIZIDE 5MG TABLET PO SCH (09:00)
[2017-12-30] MEDS ORDERED: CARVEDILOL 25MG TABLET PO SCH (09:00)
[2017-12-30] MEDS ORDERED: ISOSORBIDE DINITRATE 30MG TABLET PO SCH (09:00)
[2017-12-30 12:00] VITALS: BP 138/78
[2017-12-30 16:00] VITALS: BP 150/76
[2017-12-30 18:39] VITALS: BP 136/75
[2017-12-30] MEDS ORDERED: ATORVASTATIN CALCIUM 10MG TABLET PO SCH (21:00)
[2017-12-31] MEDS ORDERED: ENOXAPARIN 30MG/0.3ML SYR SUBCUT SCH (08:00)
[2017-12-31] MEDS ORDERED: CINACALCET HCL 60MG TABLET PO SCH (09:00)
== END 2017-12-30 19:55 | disposition home or self-care (01) | DRG 73 ==
LOC: ER 13:11 → 7WST 16:40 → EDBEDREQSVC 16:43 → EDBEDREQ 16:43 → ENRESERV 20:23
PROVIDERS: ADMIT Internal Medicine Nephrology; ATTEND Internal Medicine Nephrology
DX: G90.8 Other disorders of autonomic nervous system (principal); N18.6 End stage renal disease; E44.1 Mild protein-calorie malnutrition; I12.0 Hypertensive chronic kidney disease with stage 5 chronic kidney disease or end stage renal disease; E11.22 Type 2 diabetes mellitus with diabetic chronic kidney disease; E78.00 Pure hypercholesterolemia, unspecified; I25.10 Atherosclerotic heart disease of native coronary artery without angina pectoris; Z99.2 Dependence on renal dialysis; Z88.8 Allergy status to other drugs, medicaments and biological substances; Z91.041 Radiographic dye allergy status; Z68.28 Body mass index [BMI] 28.0-28.9, adult; Z79.4 Long term (current) use of insulin; Z79.82 Long term (current) use of aspirin; Z79.899 Other long term (current) drug therapy
CPT/HCPCS: 36415; 71045; 80048; 82962; 83735; 83880; 84100; 84484; 93005; 96365; 96367; 99285; J0456; J0696; J7060

== ENCOUNTER 2018-02-12 07:40 | Inpatient (IN) | payer MEDICARE, MEDICAID ==
[~2018-02-12] VITALS: Ht 160 cm; Wt 70.4 kg
[2018-02-12] VITALS (7 sets, daily range): BP systolic 147–194; BP diastolic 77–129
[2018-02-12] MEDS ORDERED: IODIXANOL 320MG/ML 100 ML BOTTLE IV ONE ×2 (09:34→11:10)
[2018-02-12] MEDS ORDERED: LIDOCAINE HCL 1% 20ML VIAL (Pyxis) INJ ONE (09:34)
[2018-02-12] MEDS ORDERED: HYDROCORTISONE SOD SUCCINATE 250 MG/2 ML VIAL ONE (09:52)
[2018-02-12] MEDS ORDERED: FAMOTIDINE 20MG/2ML VIAL IV ONE (09:52)
[2018-02-12] MEDS ORDERED: DIPHENHYDRAMINE 50MG/ML VIAL ONE (09:52)
[2018-02-12] MEDS ORDERED: FENTANYL CITRATE/PF 50MCG/ML 2ML VIAL ONE (09:59)
[2018-02-12] MEDS ORDERED: MIDAZOLAM HCL 2 MG/2 ML VIAL ONE (09:59)
[2018-02-12] MEDS ORDERED: IOHEXOL-300 100 ML BOTTLE ONE (10:26)
[2018-02-12] MEDS ORDERED: ASPIRIN 325MG TABLET ONE (10:46)
[2018-02-12] MEDS ORDERED: CLOPIDOGREL 75MG TABLET ONE ×2 (10:47→11:05)
[2018-02-12] MEDS ORDERED: CIPR7.5D2 OT (10:51)
[2018-02-12] MEDS ORDERED: ONDA4TAB50 PO (10:51)
[2018-02-12] MEDS ORDERED: CALC-3 PO (10:51)
[2018-02-12] MEDS ORDERED: BROM3DRO OP (10:51)
[2018-02-12] MEDS ORDERED: HYDRALAZINE 20MG/ML VIAL ONE (11:13)
[2018-02-12] MEDS ORDERED: ATROPINE SULFATE 1MG/10ML SYR IV PRN (11:15)
[2018-02-12] MEDS ORDERED: ACETAMINOPHEN 325MG TABLET PO PRN (11:15)
[2018-02-12] MEDS ORDERED: ATOR10TA PO (11:55)
[2018-02-12] MEDS ORDERED: DEXTROSE 50% WATER 50ML SYRINGE IV PRN (12:15)
[2018-02-12] MEDS: INSULIN LISPRO 100 UNITS/ML SUBCUT SCH ×3 (12:59→21:48)
[2018-02-12] MEDS: CARVEDILOL 25MG TABLET PO SCH ×2 (14:00→23:47)
[2018-02-12] MEDS ORDERED: NICARDIPINE 100MCG/ML 10ML VIAL (CATH LAB) IV ONE (14:40)
[2018-02-12] MEDS ORDERED: NITROGLYCERIN 50MCG/ML 10ML VIAL (CATH LAB) IV ONE (14:40)
[2018-02-12] MEDS: CINACALCET HCL 60MG TABLET PO SCH (14:42)
[2018-02-12] MEDS: AMLODIPINE 5MG TABLET PO SCH ×3 (14:42→23:50)
[2018-02-12] MEDS ORDERED: HEPARIN SODIUM 1,000 UNIT/1ML VIAL IV ONE (14:50)
[2018-02-12] MEDS ORDERED: CLONIDINE 0.1MG TABLET PO PRN (16:45)
[2018-02-12] MEDS: BLOOD SUGAR DIAGNOSTIC STRIP TEST SCH ×2 (16:50→21:35)
[2018-02-12] MEDS ORDERED: INSULIN GLARGINE UD 100 UNITS/ML SYR SUBCUT SCH (22:00)
[2018-02-12] MEDS ORDERED: DIPHENHYDRAMINE 50MG/ML VIAL IV PRN (22:45)
[2018-02-12] MEDS ORDERED: ONDANSETRON HCL 4MG/2ML INJ IV PRN (22:45)
[2018-02-13] VITALS: BP 168/81
[2018-02-13] MEDS: ISOSORBIDE DINITRATE 30MG TABLET PO SCH ×2 (00:33→11:27)
[2018-02-13 03:53] VITALS: BP 169/100
[2018-02-13 06:29] VITALS: BP 166/76
[2018-02-13] MEDS: BLOOD SUGAR DIAGNOSTIC STRIP TEST SCH ×2 (06:41→11:57)
[2018-02-13] MEDS: INSULIN LISPRO 100 UNITS/ML SUBCUT SCH (06:41)
[2018-02-13 07:48] LABS: BASOPHILS % 0.5 % (0.0-2.0); EOSINOPHILS % 1.5 % (0.0-5.0); HEMATOCRIT. 35.9 % (42.0-52.0); HEMOGLOBIN. 11.8 g/dL (14.0-18.0); LYMPHOCYTES % 32.1 % (20.0-50.0); MEAN CORPUSCULAR HEMOGLOBIN 31.2 pg (28.0-32.0); MEAN CORPUSCULAR VOLUME 94.9 fL (80.0-94.0); MEAN PLATELET VOLUME 8.7 fl (7.4-10.4); NEUTROPHILS % 53.9 % (40.0-76.0); PLATELET 134 x1000/uL (130-400); RED BLOOD CELL COUNT 3.78 mill/uL (4.7-6.1); RED CELL DISTRIBUTION WIDTH 21.4 % (11.6-14.6)
[2018-02-13 08:00] VITALS: BP 129/63
[2018-02-13] MEDS: CINACALCET HCL 60MG TABLET PO SCH (08:23)
[2018-02-13] MEDS: AMLODIPINE 5MG TABLET PO SCH ×2 (08:23→11:27)
[2018-02-13] MEDS: CARVEDILOL 25MG TABLET PO SCH (08:24)
[2018-02-13] MEDS ORDERED: CLOPIDOGREL 75MG TABLET PO SCH (09:00)
[2018-02-13] MEDS ORDERED: ASPIRIN 325MG TABLET PO SCH (09:00)
[2018-02-13] MEDS ORDERED: ISOSORBIDE DINITRATE 30MG TABLET PO SCH (09:00)
[2018-02-13 10:00] VITALS: BP 151/81
[2018-02-13 11:30] VITALS: BP 143/72
== END 2018-02-13 12:25 | disposition home or self-care (01) | DRG 246 ==
LOC: CCL 07:40 → 3WST 07:41
PROVIDERS: ADMIT Specialist; ATTEND Specialist
PROC: 4A023N7 Measurement of Cardiac Sampling and Pressure, Left Heart, Percutaneous Approach (ICD-10-PCS; principal; 2018-02-12)
PROC: 027035Z Dilation of Coronary Artery, One Artery with Two Drug-eluting Intraluminal Devices, Percutaneous Approach (ICD-10-PCS; 2018-02-12)
PROC: B2111ZZ Fluoroscopy of Multiple Coronary Arteries using Low Osmolar Contrast (ICD-10-PCS; 2018-02-12)
PROC: B2151ZZ Fluoroscopy of Left Heart using Low Osmolar Contrast (ICD-10-PCS; 2018-02-12)
PROC: 5A1D70Z Performance of Urinary Filtration, Intermittent, Less than 6 Hours Per Day (ICD-10-PCS; 2018-02-12)
DX: T82.855A Stenosis of coronary artery stent, initial encounter (principal); N18.6 End stage renal disease; I13.2 Hypertensive heart and chronic kidney disease with heart failure and with stage 5 chronic kidney disease, or end stage renal disease; I50.22 Chronic systolic (congestive) heart failure; E78.5 Hyperlipidemia, unspecified; Y83.8 Other surgical procedures as the cause of abnormal reaction of the patient, or of later complication, without mention of misadventure at the time of the procedure; I25.119 Atherosclerotic heart disease of native coronary artery with unspecified angina pectoris; E11.22 Type 2 diabetes mellitus with diabetic chronic kidney disease; I25.5 Ischemic cardiomyopathy; Z79.02 Long term (current) use of antithrombotics/antiplatelets; Z79.82 Long term (current) use of aspirin; Z99.2 Dependence on renal dialysis; I25.2 Old myocardial infarction; Y92.89 Other specified places as the place of occurrence of the external cause
CPT/HCPCS: 36415; 80048; 82962; 85347; 92928; 93005; 93458; A4565; C1725; C1769; C1874; C1887; C1893; J0360; J1200; J1644; J1720; J1815; J2250; J3010; J3490; Q9967

== ENCOUNTER 2018-12-10 03:27 | Emergency (ER) | payer MEDICARE, MEDICAID ==
[~2018-12-10] VITALS: Ht 162.6 cm; Wt 68.8 kg
[~2018-12-10 03:27] MED LIST changes: -ASPI-1159 PO; +ASPI-1393 PO; +BROM3DRO OP; +CALC-3 PO; -CALC667T5 PO; +CALC667T6 PO; +CIPR7.5D2 OT; +ONDA4TAB50 PO
[2018-12-10 04:40] LABS: CLARITY URINE TURBID (CLEAR); COLOR URINE BLOODY (YELLOW); KETONES URINE 3+ (NEGATIVE); LEUKOCYTE ESTERASE URINE 3+ (NEGATIVE); NITRITE URINE POSITIVE (NEGATIVE); OCCULT BLOOD URINE 3+ (NEGATIVE); PROTEIN URINE 3+ (NEGATIVE); UROBILINOGEN URINE >=8.0 E.U./dL (0.2-1.0)
[2018-12-10] MEDS ORDERED: CEFTRIAXONE 1 G PREMIX 50 ML IV ONE (05:00)
[2018-12-10 05:40] LABS: BASOPHILS % 0.3 % (0.0-2.0); EOSINOPHILS % 1.5 % (0.0-5.0); HEMATOCRIT. 33.7 % (42.0-52.0); LYMPHOCYTES % 16.6 % (20.0-50.0); MEAN CORPUSCULAR HEMOGLOBIN 28.7 pg (28.0-32.0); MEAN CORPUSCULAR VOLUME 87.6 fL (80.0-94.0); MEAN PLATELET VOLUME 8.9 fl (7.4-10.4); NEUTROPHILS % 71.6 % (40.0-76.0); PLATELET 137 x1000/uL (130-400); RED BLOOD CELL COUNT 3.84 mill/uL (4.7-6.1); RED CELL DISTRIBUTION WIDTH 18.3 % (11.6-14.6)
[2018-12-10 05:51] LABS: CHLORIDE 101 mEq/L (98-107)
[2018-12-10 06:42] VITALS: BP 161/82
== END 2018-12-10 06:46 | disposition home or self-care (01) ==
LOC: ER 04:20
DX: N39.0 Urinary tract infection, site not specified (principal); N48.1 Balanitis; M47.896 Other spondylosis, lumbar region; K42.9 Umbilical hernia without obstruction or gangrene
CPT/HCPCS: 36415; 74176; 80053; 81003; 85025; 96365; 99284; J0696

== ENCOUNTER 2018-12-15 04:17 | Emergency (ER) | payer MEDICARE, MEDICAID ==
[~2018-12-15] VITALS: Ht 165.1 cm; Wt 68.0 kg
[2018-12-15] MEDS ORDERED: AZITHROMYCIN 500 MG TABLET PO ONE (06:30)
[2018-12-15] MEDS ORDERED: CEFTRIAXONE SODIUM 250 MG/VIAL IM ONE (06:30)
[2018-12-15 08:30] VITALS: BP 118/79
== END 2018-12-15 08:30 | disposition home or self-care (01) ==
LOC: ER 04:17
DX: N48.89 Other specified disorders of penis (principal); R36.9 Urethral discharge, unspecified; E11.9 Type 2 diabetes mellitus without complications; I10 Essential (primary) hypertension; N28.9 Disorder of kidney and ureter, unspecified; Z99.2 Dependence on renal dialysis; Z79.899 Other long term (current) drug therapy; Z91.041 Radiographic dye allergy status; Z88.8 Allergy status to other drugs, medicaments and biological substances; Z79.82 Long term (current) use of aspirin; Z98.2 Presence of cerebrospinal fluid drainage device; Z98.890 Other specified postprocedural states
CPT/HCPCS: 96372; 99283; J0696

== ENCOUNTER 2019-01-04 13:29 | Inpatient (IN) | payer MEDICARE, MEDICAID ==
[~2019-01-04] VITALS: Ht 170.2 cm; Wt 68.0 kg
[2019-01-04] MEDS ORDERED: NITROGLYCERIN 0.4MG TABLET SL SL PRN (14:45)
[2019-01-04 15:08] LABS: BASOPHILS % 0.5 % (0.0-2.0); HEMATOCRIT. 28.4 % (42.0-52.0); HEMOGLOBIN. 9.4 g/dL (14.0-18.0); LYMPHOCYTES % 17.7 % (20.0-50.0); MEAN CORPUSCULAR HEMOGLOBIN 28.9 pg (28.0-32.0); MEAN CORPUSCULAR VOLUME 87.2 fL (80.0-94.0); MEAN PLATELET VOLUME 6.5 fl (7.4-10.4); MONOCYTES % 10.5 % (2.0-8.0); NEUTROPHILS % 67.3 % (40.0-76.0); PLATELET 220 x1000/uL (130-400); RED BLOOD CELL COUNT 3.25 mill/uL (4.7-6.1); RED CELL DISTRIBUTION WIDTH 21.9 % (11.6-14.6)
[2019-01-04 15:13] LABS: CHLORIDE 99 mEq/L (98-107)
[2019-01-04 15:25] LABS: INR 1.1; PARTIAL THROMBOPLASTIN TIME 29.1 sec (23.4-31.0); PROTHROMBIN TIME 10.8 sec (9.6-11.0)
[2019-01-04 21:00] VITALS: BP 160/83
[2019-01-04 22:00] VITALS: BP 160/83
[2019-01-04] MEDS ORDERED: ENOXAPARIN 40MG/0.4ML SYR SUBCUT SCH (22:00)
[2019-01-04] MEDS ORDERED: HYDROCODONE/ACETAMINOPHEN 5/325MG TABLET PO PRN (22:00)
[2019-01-04] MEDS ORDERED: LORAZEPAM 2MG/ML CPJ IV PRN (22:00)
[2019-01-04] MEDS ORDERED: ONDANSETRON HCL 4MG/2ML INJ IV PRN (22:00)
[2019-01-04] MEDS ORDERED: CLONIDINE 0.1MG TABLET PO PRN (22:00)
[2019-01-04] MEDS ORDERED: MORPHINE SULFATE 2 MG/ML CPJ (NOT FOR IM USE) IV PRN (22:00)
[2019-01-05 00:39] VITALS: BP 139/73
[2019-01-05 01:27] LABS: CREATINE KINASE MB FRACTION 2.6 ng/mL (0.5-3.6)
[2019-01-05 04:00] VITALS: BP 196/83
[2019-01-05 08:00] VITALS: BP 154/75
[2019-01-05] MEDS ORDERED: DEXTROSE 50% WATER 50ML SYRINGE IV PRN ×2 (09:45→19:45)
[2019-01-05] MEDS ORDERED: POTASSIUM CHLORIDE 20MEQ/PACKET PO NR (10:00)
[2019-01-05] MEDS: ASPIRIN 81MG EC TABLET PO SCH (10:08)
[2019-01-05] MEDS: CLOPIDOGREL 75MG TABLET PO SCH (10:09)
[2019-01-05] MEDS: AMLODIPINE 5MG TABLET PO SCH (10:09)
[2019-01-05] MEDS ORDERED: METHYLPREDNISOLONE SOD SUCC 125 MG/2 ML VIAL IV NR (10:30)
[2019-01-05] MEDS ORDERED: FAMOTIDINE 20MG/2ML VIAL IV NR (10:30)
[2019-01-05 10:50] LABS: CREATINE KINASE MB FRACTION 2.2 ng/mL (0.5-3.6)
[2019-01-05 11:34] VITALS: BP 153/70
[2019-01-05] MEDS: BLOOD SUGAR DIAGNOSTIC STRIP TEST SCH ×3 (12:37→21:33)
[2019-01-05] MEDS: INSULIN LISPRO 100 UNITS/ML SUBCUT SCH ×3 (12:52→21:34)
[2019-01-05] MEDS ORDERED: ENOXAPARIN 60MG/0.6ML SYR SUBCUT NR (14:00)
[2019-01-05] MEDS: NITROGLYCERIN OINT 1GM/INCH UDPKT TD SCH ×2 (14:57→21:33)
[2019-01-05 16:00] VITALS: BP 110/74
[2019-01-05] MEDS: ATORVASTATIN CALCIUM 10MG TABLET PO SCH (21:31)
[2019-01-05] MEDS: CARVEDILOL 12.5MG TABLET PO SCH (21:32)
[2019-01-05] MEDS: INSULIN GLARGINE UD 100 UNITS/ML SYR SUBCUT SCH (22:26)
[2019-01-06] VITALS (7 sets, daily range): BP systolic 119–231; BP diastolic 70–101
[2019-01-06] MEDS ORDERED: CLONIDINE 0.1MG TABLET PO SCH (00:30)
[2019-01-06] MEDS: CLONIDINE 0.1MG TABLET PO SCH (01:11)
[2019-01-06] MEDS: METOPROLOL TARTRATE 50MG TABLET PO SCH (01:11)
[2019-01-06] MEDS: NITROGLYCERIN OINT 1GM/INCH UDPKT TD SCH (06:21)
[2019-01-06] MEDS: BLOOD SUGAR DIAGNOSTIC STRIP TEST SCH ×2 (06:21→21:00)
[2019-01-06 07:26] LABS: BASOPHILS % 0.4 % (0.0-2.0); EOSINOPHILS % 1.4 % (0.0-5.0); HEMATOCRIT. 29.9 % (42.0-52.0); HEMOGLOBIN. 9.8 g/dL (14.0-18.0); LYMPHOCYTES % 14.5 % (20.0-50.0); MEAN CORPUSCULAR VOLUME 88.7 fL (80.0-94.0); MONOCYTES % 9.2 % (2.0-8.0); NEUTROPHILS % 74.5 % (40.0-76.0); PLATELET 246 x1000/uL (130-400); RED BLOOD CELL COUNT 3.37 mill/uL (4.7-6.1)
[2019-01-06] MEDS ORDERED: CINACALCET HCL 60MG TABLET PO SCH (07:50)
[2019-01-06] MEDS: INSULIN LISPRO 100 UNITS/ML SUBCUT SCH ×2 (07:50→21:00)
[2019-01-06] MEDS ORDERED: CALCIUM CARBONATE/VITAMIN D3 500MG TABLET PO SCH (09:00)
[2019-01-06] MEDS ORDERED: DIPHENHYDRAMINE 50MG/ML VIAL IV NR (10:30)
[2019-01-06 11:27] LABS: PLATELET ESTIMATE NORMAL
[2019-01-06] MEDS ORDERED: NITROGLYCERIN 50MCG/ML 10ML VIAL (CATH LAB) IV ONE (14:00)
[2019-01-06] MEDS ORDERED: NICARDIPINE 100MCG/ML 10ML VIAL (CATH LAB) IV ONE (14:00)
[2019-01-06] MEDS ORDERED: HEPARIN SODIUM 1,000 UNIT/1ML VIAL IV ONE (14:00)
[2019-01-06] MEDS ORDERED: FAMOTIDINE 20MG/2ML VIAL IV ONE (14:18)
[2019-01-06] MEDS ORDERED: HYDROCORTISONE SOD SUCCINATE 250 MG/2 ML VIAL ONE (14:18)
[2019-01-06] MEDS ORDERED: DIPHENHYDRAMINE 50MG/ML VIAL ONE (14:20)
[2019-01-06] MEDS ORDERED: FENTANYL CITRATE/PF 50MCG/ML 2ML VIAL ONE (14:27)
[2019-01-06] MEDS ORDERED: MIDAZOLAM HCL 2 MG/2 ML VIAL ONE (14:27)
[2019-01-06] MEDS ORDERED: IODIXANOL 320MG/ML 100 ML BOTTLE IV ONE (14:28)
[2019-01-06] MEDS ORDERED: LIDOCAINE HCL 1% 20ML VIAL (Pyxis) INJ ONE (14:28)
[2019-01-06] MEDS ORDERED: ACETAMINOPHEN 325MG TABLET PO PRN (15:30)
[2019-01-06] MEDS ORDERED: ATROPINE SULFATE 1MG/10ML SYR IV PRN (15:30)
[2019-01-06] MEDS ORDERED: ONDANSETRON HCL 4MG/2ML INJ IV PRN (15:30)
[2019-01-06] MEDS: GLIPIZIDE 5MG TABLET PO SCH (17:20)
[2019-01-06] MEDS: INSULIN GLARGINE UD 100 UNITS/ML SYR SUBCUT SCH (22:00)
[2019-01-07] VITALS: BP 199/100
[2019-01-07 02:00] VITALS: BP 170/92
[2019-01-07 04:00] VITALS: BP 118/81
[2019-01-07] MEDS: ATORVASTATIN CALCIUM 10MG TABLET PO SCH (05:06)
[2019-01-07] MEDS: NITROGLYCERIN OINT 1GM/INCH UDPKT TD SCH ×3 (05:06→06:00)
[2019-01-07] MEDS: METOPROLOL TARTRATE 50MG TABLET PO SCH ×3 (05:07→08:43)
[2019-01-07] MEDS: CLONIDINE 0.1MG TABLET PO SCH ×3 (05:07→08:42)
[2019-01-07] MEDS: CARVEDILOL 12.5MG TABLET PO SCH ×3 (05:07→08:44)
[2019-01-07] MEDS: BLOOD SUGAR DIAGNOSTIC STRIP TEST SCH (06:50)
[2019-01-07 07:48] LABS: BASOPHILS % 0.2 % (0.0-2.0); HEMATOCRIT. 29.5 % (42.0-52.0); HEMOGLOBIN. 9.7 g/dL (14.0-18.0); LYMPHOCYTES % 17.3 % (20.0-50.0); MEAN CORPUSCULAR HEMOGLOBIN 28.8 pg (28.0-32.0); MEAN CORPUSCULAR VOLUME 87.2 fL (80.0-94.0); MEAN PLATELET VOLUME 7.2 fl (7.4-10.4); MONOCYTES % 7.3 % (2.0-8.0); NEUTROPHILS % 75.2 % (40.0-76.0); PLATELET 202 x1000/uL (130-400); RED BLOOD CELL COUNT 3.38 mill/uL (4.7-6.1); RED CELL DISTRIBUTION WIDTH 23.2 % (11.6-14.6)
[2019-01-07 08:00] VITALS: BP 199/75
[2019-01-07] MEDS: ASPIRIN 81MG EC TABLET PO SCH (08:43)
[2019-01-07] MEDS: CLOPIDOGREL 75MG TABLET PO SCH (08:43)
[2019-01-07] MEDS: AMLODIPINE 5MG TABLET PO SCH (08:43)
[2019-01-07 12:00] VITALS: BP 149/70
[2019-01-07 12:41] VITALS: BP 149/70
== END 2019-01-07 13:15 | disposition home or self-care (01) | DRG 286 ==
LOC: ER 13:29 → 6WST 18:28 → ENRESERV 19:30 → 3WST 01-06 15:40
PROVIDERS: ADMIT Internal Medicine Nephrology; ATTEND Internal Medicine Nephrology
PROC: 4A023N7 Measurement of Cardiac Sampling and Pressure, Left Heart, Percutaneous Approach (ICD-10-PCS; principal; 2019-01-06)
PROC: B2111ZZ Fluoroscopy of Multiple Coronary Arteries using Low Osmolar Contrast (ICD-10-PCS; 2019-01-06)
DX: T82.855A Stenosis of coronary artery stent, initial encounter (principal); N18.6 End stage renal disease; I25.110 Atherosclerotic heart disease of native coronary artery with unstable angina pectoris; I13.2 Hypertensive heart and chronic kidney disease with heart failure and with stage 5 chronic kidney disease, or end stage renal disease; I50.22 Chronic systolic (congestive) heart failure; N25.81 Secondary hyperparathyroidism of renal origin; D63.8 Anemia in other chronic diseases classified elsewhere; E11.22 Type 2 diabetes mellitus with diabetic chronic kidney disease; E11.649 Type 2 diabetes mellitus with hypoglycemia without coma; R07.89 Other chest pain; J44.9 Chronic obstructive pulmonary disease, unspecified; E78.5 Hyperlipidemia, unspecified; D69.6 Thrombocytopenia, unspecified; D70.9 Neutropenia, unspecified; E11.65 Type 2 diabetes mellitus with hyperglycemia; I25.5 Ischemic cardiomyopathy; M71.21 Synovial cyst of popliteal space [Baker], right knee; Y71.3 Surgical instruments, materials and cardiovascular devices (including sutures) associated with adverse incidents; Z99.2 Dependence on renal dialysis; Z79.02 Long term (current) use of antithrombotics/antiplatelets; Z79.82 Long term (current) use of aspirin; Z79.899 Other long term (current) drug therapy; Z88.8 Allergy status to other drugs, medicaments and biological substances; I25.2 Old myocardial infarction; Z82.49 Family history of ischemic heart disease and other diseases of the circulatory system; Z95.5 Presence of coronary angioplasty implant and graft; Z79.4 Long term (current) use of insulin; Y92.89 Other specified places as the place of occurrence of the external cause
CPT/HCPCS: 36415; 71045; 78582; 80048; 82550; 82553; 82962; 83036; 83880; 84484; 85379; 93005; 93458; 93970; 99285; A9558; C1769; C1887; C1893; J1200; J1644; J1650; J1720; J1815; J2060; J2250; J3010; J3490; Q9967

== ENCOUNTER 2019-01-25 13:42 | Emergency (ER) | payer MEDICARE, MEDICAID ==
[~2019-01-25] VITALS: Ht 172.7 cm; Wt 80.0 kg
[2019-01-25] MEDS ORDERED: ASPIRIN 81MG TABLET PO ONE (14:00)
[2019-01-25] MEDS ORDERED: NITROGLYCERIN 0.4MG TABLET SL SL PRN (14:00)
[2019-01-25 14:35] LABS: BASOPHILS % 0.1 % (0.0-2.0); EOSINOPHILS % 1.4 % (0.0-5.0); HEMATOCRIT. 31.2 % (42.0-52.0); HEMOGLOBIN. 10.5 g/dL (14.0-18.0); LYMPHOCYTES % 21.8 % (20.0-50.0); MEAN CORPUSCULAR HEMOGLOBIN 30.5 pg (28.0-32.0); MEAN CORPUSCULAR VOLUME 91.1 fL (80.0-94.0); MEAN PLATELET VOLUME 7.4 fl (7.4-10.4); MONOCYTES % 7.7 % (2.0-8.0); PLATELET 148 x1000/uL (130-400); RED BLOOD CELL COUNT 3.43 mill/uL (4.7-6.1); RED CELL DISTRIBUTION WIDTH 27.2 % (11.6-14.6)
[2019-01-25 14:37] LABS: CHLORIDE 98 mEq/L (98-107)
[2019-01-25 19:30] VITALS: BP 179/99
== END 2019-01-25 21:30 | disposition left against medical advice (07) ==
LOC: ER 13:42 → EDBEDREQ 15:27 → ENRESERV 21:12 → CANRESERV 21:12 → ER 21:30 → CANBEDREQ 21:32
DX: R07.89 Other chest pain (principal); R13.10 Dysphagia, unspecified; E11.22 Type 2 diabetes mellitus with diabetic chronic kidney disease; I12.0 Hypertensive chronic kidney disease with stage 5 chronic kidney disease or end stage renal disease; Z99.2 Dependence on renal dialysis; N18.6 End stage renal disease; E43 Unspecified severe protein-calorie malnutrition; Z68.26 Body mass index [BMI] 26.0-26.9, adult
CPT/HCPCS: 36415; 71045; 83880; 84484; 93005; 99284

== ENCOUNTER 2019-02-28 06:39 | Emergency (ER) | payer MEDICARE, MEDICAID ==
[~2019-02-28] VITALS: Ht 162.6 cm; Wt 71.0 kg
[2019-02-28] MEDS ORDERED: TRAMADOL 50MG TABLET PO ONE (07:30)
[2019-02-28] MEDS ORDERED: KETOROLAC 30MG/ML VIAL IM ONE (09:45)
[2019-02-28] MEDS ORDERED: MORPHINE SULFATE 10 MG/ML CPJ IM ONE (09:45)
[2019-02-28 11:42] VITALS: BP 168/85
== END 2019-02-28 11:49 | disposition home or self-care (01) ==
LOC: ER 06:39
DX: S39.012A Strain of muscle, fascia and tendon of lower back, initial encounter (principal); W18.39XA Other fall on same level, initial encounter; Y93.89 Activity, other specified; Y92.89 Other specified places as the place of occurrence of the external cause; Y99.8 Other external cause status; I10 Essential (primary) hypertension; E11.9 Type 2 diabetes mellitus without complications; Z79.82 Long term (current) use of aspirin; Z79.4 Long term (current) use of insulin; Z79.899 Other long term (current) drug therapy; Z88.5 Allergy status to narcotic agent; Z88.8 Allergy status to other drugs, medicaments and biological substances
CPT/HCPCS: 74176; 96372; 99284; J1885; J2270

== ENCOUNTER 2019-04-09 10:52 | Inpatient (IN) | payer MEDICARE, MEDICAID ==
[~2019-04-09] VITALS: Ht 162.6 cm; Wt 79.4 kg
[~2019-04-09 10:52] MED LIST changes: -ASPI-1393 PO; +ASPI-1497 PO
[2019-04-09] MEDS ORDERED: MORPHINE SULFATE 4 MG/ML CPJ (NOT FOR IM USE) IV STA (11:28)
[2019-04-09] MEDS ORDERED: ONDANSETRON HCL 4MG/2ML INJ IV STA (11:28)
[2019-04-09] MEDS ORDERED: NITROGLYCERIN OINT 1GM/INCH UDPKT TD ONE (11:30)
[2019-04-09 12:00] LABS: BASOPHILS % 0.5 % (0.0-2.0); EOSINOPHILS % 2.9 % (0.0-5.0); HEMATOCRIT. 36.9 % (42.0-52.0); HEMOGLOBIN. 12.2 g/dL (14.0-18.0); LYMPHOCYTES % 22.1 % (20.0-50.0); MEAN CORPUSCULAR HEMOGLOBIN 31.5 pg (28.0-32.0); MEAN CORPUSCULAR VOLUME 95.5 fL (80.0-94.0); MEAN PLATELET VOLUME 8.2 fl (7.4-10.4); MONOCYTES % 11.1 % (2.0-8.0); NEUTROPHILS % 63.4 % (40.0-76.0); PLATELET 142 x1000/uL (130-400); RED BLOOD CELL COUNT 3.87 mill/uL (4.7-6.1); RED CELL DISTRIBUTION WIDTH 20.9 % (11.6-14.6)
[2019-04-09 12:07] LABS: CHLORIDE 100 mEq/L (98-107)
[2019-04-09 12:13] LABS: PHOSPHORUS 4.3 mg/dL (2.5-4.9)
[2019-04-09] MEDS ORDERED: ACETAMINOPHEN 325MG TABLET PO PRN (13:30)
[2019-04-09] MEDS ORDERED: CARVEDILOL 12.5MG TABLET PO ONE (13:30)
[2019-04-09] MEDS ORDERED: NITROGLYCERIN 0.4MG TABLET SL SL PRN (13:30)
[2019-04-09] MEDS ORDERED: DEXTROSE 50% WATER 50ML SYRINGE IV PRN (13:30)
[2019-04-09] MEDS ORDERED: CARVEDILOL 12.5MG TABLET PO NR (15:30)
[2019-04-09] MEDS: CALCIUM CARBONATE/VITAMIN D3 500MG TABLET PO SCH (16:29)
[2019-04-09] MEDS: BLOOD SUGAR DIAGNOSTIC STRIP TEST SCH ×2 (17:10→21:52)
[2019-04-09 17:15] VITALS: BP 164/103
[2019-04-09 17:19] VITALS: BP 164/103
[2019-04-09] MEDS: INSULIN LISPRO 100 UNITS/ML SUBCUT SCH ×2 (18:20→22:11)
[2019-04-09 20:00] VITALS: BP 145/83
[2019-04-09] MEDS ORDERED: ATORVASTATIN CALCIUM 10MG TABLET PO SCH (21:00)
[2019-04-09] MEDS: HEPARIN 5000 UNITS/ML VIAL SUBCUT SCH (21:49)
[2019-04-09] MEDS: TRAMADOL 50MG TABLET PO PRN (21:51)
[2019-04-09] MEDS: AMLODIPINE 5MG TABLET PO SCH (21:52)
[2019-04-09] MEDS ORDERED: INSULIN GLARGINE UD 100 UNITS/ML SYR SUBCUT SCH (22:00)
[2019-04-09] MEDS: ONDANSETRON HCL 4MG/2ML INJ IV PRN (22:11)
[2019-04-09] MEDS: INSULIN GLARGINE UD 100 UNITS/ML SYR SUBCUT SCH (23:30)
[2019-04-10] VITALS: BP 162/90
[2019-04-10] MEDS: CLONIDINE 0.1MG TABLET PO PRN (00:48)
[2019-04-10] MEDS: ONDANSETRON HCL 4MG/2ML INJ IV PRN ×2 (05:32→17:40)
[2019-04-10] MEDS: BLOOD SUGAR DIAGNOSTIC STRIP TEST SCH ×4 (05:55→20:57)
[2019-04-10] MEDS: INSULIN LISPRO 100 UNITS/ML SUBCUT SCH ×4 (06:54→21:12)
[2019-04-10] MEDS: CALCIUM CARBONATE/VITAMIN D3 500MG TABLET PO SCH ×2 (07:03→17:22)
[2019-04-10 08:00] VITALS: BP 146/88
[2019-04-10] MEDS: HEPARIN 5000 UNITS/ML VIAL SUBCUT SCH ×2 (08:34→21:06)
[2019-04-10] MEDS: CINACALCET HCL 60MG TABLET PO SCH (08:35)
[2019-04-10] MEDS: ASPIRIN 81MG EC TABLET PO SCH (08:35)
[2019-04-10] MEDS: CLOPIDOGREL 75MG TABLET PO SCH (08:35)
[2019-04-10] MEDS ORDERED: ISOSORBIDE DINITRATE 30MG TABLET PO SCH (09:00)
[2019-04-10 10:07] LABS: BASOPHILS % 0.6 % (0.0-2.0); EOSINOPHILS % 4.3 % (0.0-5.0); HEMATOCRIT. 37.6 % (42.0-52.0); HEMOGLOBIN. 12.2 g/dL (14.0-18.0); LYMPHOCYTES % 32.6 % (20.0-50.0); MEAN CORPUSCULAR HEMOGLOBIN 31.3 pg (28.0-32.0); MEAN CORPUSCULAR VOLUME 96.3 fL (80.0-94.0); MONOCYTES % 9.6 % (2.0-8.0); NEUTROPHILS % 52.9 % (40.0-76.0); PLATELET 147 x1000/uL (130-400); RED BLOOD CELL COUNT 3.91 mill/uL (4.7-6.1); RED CELL DISTRIBUTION WIDTH 20.9 % (11.6-14.6)
[2019-04-10 10:09] LABS: CHLORIDE 102 mEq/L (98-107)
[2019-04-10 10:16] LABS: LDL CHOLESTEROL 63 mg/dL (5-100)
[2019-04-10 10:17] LABS: HDL CHOLESTEROL 44 mg/dL (40-59)
[2019-04-10 12:00] VITALS: BP 147/80
[2019-04-10] MEDS: ONDANSETRON HCL 4MG TABLET PO SCH ×4 (13:00→17:26)
[2019-04-10] MEDS: GLIPIZIDE 10MG TABLET PO SCH ×2 (13:52→17:21)
[2019-04-10] MEDS: TRAMADOL 50MG TABLET PO PRN (14:46)
[2019-04-10 16:00] VITALS: BP 120/75
[2019-04-10] MEDS: METOCLOPRAMIDE HCL 10MG/2ML VIAL IV SCH (18:56)
[2019-04-10 20:00] VITALS: BP 165/85
[2019-04-10] MEDS: AMLODIPINE 5MG TABLET PO SCH (21:06)
[2019-04-10] MEDS: ATORVASTATIN CALCIUM 10MG TABLET PO SCH (21:06)
[2019-04-10] MEDS: INSULIN GLARGINE UD 100 UNITS/ML SYR SUBCUT SCH (21:13)
[2019-04-11] VITALS: BP 135/75
[2019-04-11] MEDS: METOCLOPRAMIDE HCL 10MG/2ML VIAL IV SCH ×5 (00:07→23:45)
[2019-04-11 04:00] VITALS: BP 144/75
[2019-04-11 06:42] LABS: BASOPHILS % 0.6 % (0.0-2.0); EOSINOPHILS % 4.5 % (0.0-5.0); HEMATOCRIT. 38.1 % (42.0-52.0); HEMOGLOBIN. 12.3 g/dL (14.0-18.0); MEAN CORPUSCULAR VOLUME 95.8 fL (80.0-94.0); MEAN PLATELET VOLUME 8.7 fl (7.4-10.4); MONOCYTES % 12.9 % (2.0-8.0); PLATELET 156 x1000/uL (130-400); RED BLOOD CELL COUNT 3.97 mill/uL (4.7-6.1); RED CELL DISTRIBUTION WIDTH 20.3 % (11.6-14.6)
[2019-04-11] MEDS: BLOOD SUGAR DIAGNOSTIC STRIP TEST SCH ×4 (06:49→20:41)
[2019-04-11] MEDS: GLIPIZIDE 10MG TABLET PO SCH ×2 (06:50→18:20)
[2019-04-11] MEDS: INSULIN LISPRO 100 UNITS/ML SUBCUT SCH ×4 (06:50→20:42)
[2019-04-11] MEDS: CALCIUM CARBONATE/VITAMIN D3 500MG TABLET PO SCH ×2 (07:40→17:24)
[2019-04-11 08:00] VITALS: BP 141/72
[2019-04-11] MEDS: ASPIRIN 81MG EC TABLET PO SCH (08:36)
[2019-04-11] MEDS: ONDANSETRON HCL 4MG TABLET PO SCH ×3 (08:37→17:00)
[2019-04-11] MEDS: CLOPIDOGREL 75MG TABLET PO SCH (08:37)
[2019-04-11] MEDS: CINACALCET HCL 60MG TABLET PO SCH (08:37)
[2019-04-11] MEDS: HEPARIN 5000 UNITS/ML VIAL SUBCUT SCH ×2 (08:38→20:41)
[2019-04-11] MEDS ORDERED: BACTERIOSTATIC SODIUM CHLORIDE 0.9% 30ML VIAL IJ ONE (11:33)
[2019-04-11] MEDS ORDERED: SIMETHICONE 40 MG/0.6 ML 30ML ONE (11:33)
[2019-04-11 12:00] VITALS: BP 148/84
[2019-04-11] MEDS ORDERED: FENTANYL CITRATE/PF 50MCG/ML 2ML VIAL ONE (15:39)
[2019-04-11] MEDS ORDERED: MIDAZOLAM HCL 5 MG/5 ML VIAL ONE (15:40)
[2019-04-11] MEDS ORDERED: DIPHENHYDRAMINE 50MG/ML VIAL ONE (15:40)
[2019-04-11] MEDS ORDERED: FENTANYL CITRATE/PF 50MCG/ML 2ML VIAL IV PRN (15:59)
[2019-04-11] MEDS ORDERED: MIDAZOLAM HCL 5 MG/5 ML VIAL IV PRN (16:02)
[2019-04-11 17:00] VITALS: BP 132/69
[2019-04-11 20:00] VITALS: BP 141/64
[2019-04-11] MEDS: ATORVASTATIN CALCIUM 10MG TABLET PO SCH (20:39)
[2019-04-11] MEDS: AMLODIPINE 5MG TABLET PO SCH (20:39)
[2019-04-11] MEDS: TRAMADOL 50MG TABLET PO PRN (20:41)
[2019-04-11] MEDS: INSULIN GLARGINE UD 100 UNITS/ML SYR SUBCUT SCH (22:00)
[2019-04-11 23:43] LABS: HEMATOCRIT 34.7 % (42.0-52.0); HEMOGLOBIN 11.4 g/dL (14.0-18.0)
[2019-04-11 23:57] LABS: INR 1.1; PROTHROMBIN TIME 10.8 sec (9.6-11.0)
[2019-04-12] VITALS: BP 154/90
[2019-04-12 04:00] VITALS: BP 164/91
[2019-04-12] MEDS: TRAMADOL 50MG TABLET PO PRN (05:10)
[2019-04-12] MEDS: METOCLOPRAMIDE HCL 10MG/2ML VIAL IV SCH ×3 (05:10→12:00)
[2019-04-12] MEDS: CLONIDINE 0.1MG TABLET PO PRN (05:10)
[2019-04-12 05:45] LABS: BASOPHILS % 0.9 % (0.0-2.0); HEMATOCRIT. 35.2 % (42.0-52.0); HEMOGLOBIN. 11.6 g/dL (14.0-18.0); MEAN CORPUSCULAR HEMOGLOBIN 31.3 pg (28.0-32.0); MEAN CORPUSCULAR VOLUME 94.6 fL (80.0-94.0); MEAN PLATELET VOLUME 8.4 fl (7.4-10.4); MONOCYTES % 13.1 % (2.0-8.0); PLATELET 143 x1000/uL (130-400); RED BLOOD CELL COUNT 3.72 mill/uL (4.7-6.1); RED CELL DISTRIBUTION WIDTH 20.4 % (11.6-14.6)
[2019-04-12] MEDS: BLOOD SUGAR DIAGNOSTIC STRIP TEST SCH ×2 (06:07→12:53)
[2019-04-12] MEDS: GLIPIZIDE 10MG TABLET PO SCH (06:38)
[2019-04-12] MEDS: INSULIN LISPRO 100 UNITS/ML SUBCUT SCH ×3 (07:40→12:40)
[2019-04-12 08:00] VITALS: BP 156/84
[2019-04-12] MEDS: ASPIRIN 81MG EC TABLET PO SCH (09:05)
[2019-04-12] MEDS: ONDANSETRON HCL 4MG TABLET PO SCH ×2 (09:06→13:00)
[2019-04-12] MEDS: CALCIUM CARBONATE/VITAMIN D3 500MG TABLET PO SCH (09:06)
[2019-04-12] MEDS: CINACALCET HCL 60MG TABLET PO SCH (09:06)
[2019-04-12] MEDS: CLOPIDOGREL 75MG TABLET PO SCH (09:06)
[2019-04-12] MEDS: HEPARIN 5000 UNITS/ML VIAL SUBCUT SCH (09:07)
[2019-04-12 12:00] VITALS: BP 170/90
[2019-04-12 14:42] VITALS: BP 170/90
[2019-06-02] MEDS ORDERED: CLOP75TA33 PO (12:18)
[2019-06-02] MEDS ORDERED: CALC-3 PO (12:18)
[2019-06-02] MEDS ORDERED: LEVO500T2 MT (12:18)
[2019-06-02] MEDS ORDERED: GLIP5TAB12 MT (12:18)
[2019-06-02] MEDS ORDERED: LOSA100T32 MT (12:18)
[2019-06-02] MEDS ORDERED: CALC667T6 PO (12:18)
[2019-06-02] MEDS ORDERED: CARV25TA47 PO (12:18)
== END 2019-04-12 16:06 | disposition home or self-care (01) | DRG 313 ==
LOC: ER 11:03 → 8WST 11:50 → EDBEDREQ 11:52 → ENRESERV 14:31
PROVIDERS: ADMIT Internal Medicine Nephrology; ATTEND Internal Medicine Nephrology
PROC: 0DB78ZX Excision of Stomach, Pylorus, Via Natural or Artificial Opening Endoscopic, Diagnostic (ICD-10-PCS; principal; 2019-04-11)
DX: R07.9 Chest pain, unspecified (principal); N18.6 End stage renal disease; I12.0 Hypertensive chronic kidney disease with stage 5 chronic kidney disease or end stage renal disease; E44.0 Moderate protein-calorie malnutrition; I25.10 Atherosclerotic heart disease of native coronary artery without angina pectoris; E11.43 Type 2 diabetes mellitus with diabetic autonomic (poly)neuropathy; K21.9 Gastro-esophageal reflux disease without esophagitis; K31.84 Gastroparesis; E78.00 Pure hypercholesterolemia, unspecified; D50.9 Iron deficiency anemia, unspecified; K29.70 Gastritis, unspecified, without bleeding; K31.9 Disease of stomach and duodenum, unspecified; D53.9 Nutritional anemia, unspecified; E11.22 Type 2 diabetes mellitus with diabetic chronic kidney disease; Z95.5 Presence of coronary angioplasty implant and graft; Z99.2 Dependence on renal dialysis; Z79.899 Other long term (current) drug therapy; Z79.4 Long term (current) use of insulin; Z88.8 Allergy status to other drugs, medicaments and biological substances; Z79.02 Long term (current) use of antithrombotics/antiplatelets; Z91.041 Radiographic dye allergy status; Z79.82 Long term (current) use of aspirin
CPT/HCPCS: 36415; 71045; 80048; 80053; 80061; 82962; 83036; 83735; 84100; 84484; 85014; 85018; 85025; 88305; 88313; 93005; 99285; J1200; J1644; J1815; J2250; J2270; J2405; J2765; J3010; J3490; Q0162

== ENCOUNTER 2019-05-07 12:44 | Inpatient (IN) | payer MEDICARE, MEDICAID ==
[~2019-05-07] VITALS: Ht 175.3 cm; Wt 63.5 kg
[~2019-05-07 12:44] MED LIST changes: -ALBU90AE IH; -BROM3DRO OP; -CIPR7.5D2 OT; -INSU100I19 SQ
[2019-05-07] MEDS ORDERED: ASPIRIN 81MG TABLET PO ONE (19:30)
[2019-05-07 23:08] LABS: HEMATOCRIT. 34.2 % (42.0-52.0); HEMOGLOBIN. 11.3 g/dL (14.0-18.0); MEAN CORPUSCULAR HEMOGLOBIN 32.6 pg (28.0-32.0); MEAN CORPUSCULAR VOLUME 98.7 fL (80.0-94.0); MEAN PLATELET VOLUME 8.4 fl (7.4-10.4); PLATELET 219 x1000/uL (130-400); RED BLOOD CELL COUNT 3.46 mill/uL (4.7-6.1); RED CELL DISTRIBUTION WIDTH 22.2 % (11.6-14.6)
[2019-05-07] MEDS ORDERED: ONDANSETRON HCL 4MG/2ML INJ IV PRN (23:15)
[2019-05-07] MEDS ORDERED: MORPHINE SULFATE 2 MG/ML CPJ (NOT FOR IM USE) IV PRN (23:15)
[2019-05-07] MEDS ORDERED: IPRATROPIUM/ALBUTEROL 0.5-3(2.5)MG/3ML NEB NEB PRN (23:15)
[2019-05-08 01:02] LABS: CHLORIDE 100 mEq/L (98-107)
[2019-05-08 05:21] LABS: BASOPHILS % 0.5 % (0.0-2.0); EOSINOPHILS % 3.4 % (0.0-5.0); HEMATOCRIT. 31.7 % (42.0-52.0); HEMOGLOBIN. 10.6 g/dL (14.0-18.0); LYMPHOCYTES % 30.3 % (20.0-50.0); MEAN CORPUSCULAR HEMOGLOBIN 33.1 pg (28.0-32.0); MEAN PLATELET VOLUME 7.6 fl (7.4-10.4); NEUTROPHILS % 54.8 % (40.0-76.0); PLATELET 145 x1000/uL (130-400); RED CELL DISTRIBUTION WIDTH 21.9 % (11.6-14.6)
[2019-05-08 05:32] LABS: CREATINE KINASE MB FRACTION 3.5 ng/mL (0.5-3.6)
[2019-05-08 08:00] VITALS: BP_SYST 123; BP_SYST 143; BP_DIAS 61; BP_DIAS 83
[2019-05-08 08:36] LABS: NUCLEATED RED BLOOD CELLS 1 /100 WBC; PLATELET ESTIMATE NORMAL
[2019-05-08] MEDS ORDERED: DEXTROSE 50% WATER 50ML SYRINGE IV PRN (09:00)
[2019-05-08] MEDS: BLOOD SUGAR DIAGNOSTIC STRIP TEST SCH ×4 (09:50→20:51)
[2019-05-08] MEDS: ENOXAPARIN 30MG/0.3ML SYR SUBCUT SCH (10:20)
[2019-05-08] MEDS: INSULIN LISPRO 100 UNITS/ML SUBCUT SCH ×4 (10:22→20:51)
[2019-05-08] MEDS: FOLIC ACID 1MG TABLET PO SCH (10:22)
[2019-05-08] MEDS: ASPIRIN 81MG EC TABLET PO SCH (10:23)
[2019-05-08 12:00] VITALS: BP 193/70
[2019-05-08] MEDS: CLOPIDOGREL 75MG TABLET PO SCH (14:06)
[2019-05-08] MEDS: HYDROCODONE/ACETAMINOPHEN 5/325MG TABLET PO PRN (14:06)
[2019-05-08 15:48] LABS: CREATINE KINASE MB FRACTION 4.1 ng/mL (0.5-3.6)
[2019-05-08 16:00] VITALS: BP 124/92
[2019-05-08 20:00] VITALS: BP 134/75
[2019-05-08] MEDS: METOPROLOL TARTRATE 50MG TABLET PO SCH (21:07)
[2019-05-08] MEDS: ATORVASTATIN CALCIUM 40MG TABLET PO SCH (21:07)
[2019-05-09] VITALS: BP 130/69
[2019-05-09 04:00] VITALS: BP 131/73
[2019-05-09] MEDS: BLOOD SUGAR DIAGNOSTIC STRIP TEST SCH ×4 (05:50→21:00)
[2019-05-09] MEDS: INSULIN LISPRO 100 UNITS/ML SUBCUT SCH ×4 (07:36→21:00)
[2019-05-09] MEDS: FOLIC ACID 1MG TABLET PO SCH (09:24)
[2019-05-09] MEDS: CLOPIDOGREL 75MG TABLET PO SCH (09:24)
[2019-05-09] MEDS: ASPIRIN 81MG EC TABLET PO SCH (09:25)
[2019-05-09] MEDS: ENOXAPARIN 30MG/0.3ML SYR SUBCUT SCH (09:25)
[2019-05-09] MEDS: METOPROLOL TARTRATE 50MG TABLET PO SCH ×2 (09:25→21:44)
[2019-05-09 12:00] VITALS: BP 134/79
[2019-05-09] MEDS: AMLODIPINE 5MG TABLET PO SCH ×2 (13:16→21:43)
[2019-05-09 17:21] LABS: BASOPHILS % 0.4 % (0.0-2.0); EOSINOPHILS % 3.3 % (0.0-5.0); HEMATOCRIT. 29.3 % (42.0-52.0); HEMOGLOBIN. 9.9 g/dL (14.0-18.0); LYMPHOCYTES % 31.4 % (20.0-50.0); MEAN CORPUSCULAR HEMOGLOBIN 33.1 pg (28.0-32.0); MEAN CORPUSCULAR VOLUME 98.3 fL (80.0-94.0); MEAN PLATELET VOLUME 7.4 fl (7.4-10.4); MONOCYTES % 11.6 % (2.0-8.0); NEUTROPHILS % 53.3 % (40.0-76.0); PLATELET 158 x1000/uL (130-400); RED BLOOD CELL COUNT 2.98 mill/uL (4.7-6.1); RED CELL DISTRIBUTION WIDTH 21.9 % (11.6-14.6)
[2019-05-09] MEDS ORDERED: SODIUM POLYSTYRENE SULFONATE 15 G/60 ML BOT PO NR (21:00)
[2019-05-09] MEDS: ATORVASTATIN CALCIUM 40MG TABLET PO SCH (21:44)
[2019-05-10] MEDS: BLOOD SUGAR DIAGNOSTIC STRIP TEST SCH ×3 (06:09→17:20)
[2019-05-10 07:05] LABS: BASOPHILS % 0.2 % (0.0-2.0); HEMOGLOBIN. 10.1 g/dL (14.0-18.0); LYMPHOCYTES % 33.9 % (20.0-50.0); MEAN CORPUSCULAR HEMOGLOBIN 31.8 pg (28.0-32.0); MEAN CORPUSCULAR VOLUME 97.7 fL (80.0-94.0); MEAN PLATELET VOLUME 8.3 fl (7.4-10.4); MONOCYTES % 14.1 % (2.0-8.0); NEUTROPHILS % 48.8 % (40.0-76.0); PLATELET 174 x1000/uL (130-400); RED BLOOD CELL COUNT 3.17 mill/uL (4.7-6.1); RED CELL DISTRIBUTION WIDTH 21.4 % (11.6-14.6)
[2019-05-10 08:07] VITALS: BP 125/64
[2019-05-10] MEDS: AMLODIPINE 5MG TABLET PO SCH (09:12)
[2019-05-10] MEDS: FOLIC ACID 1MG TABLET PO SCH (09:12)
[2019-05-10] MEDS: METOPROLOL TARTRATE 50MG TABLET PO SCH (09:12)
[2019-05-10] MEDS: CLOPIDOGREL 75MG TABLET PO SCH (09:12)
[2019-05-10] MEDS: ASPIRIN 81MG EC TABLET PO SCH (09:13)
[2019-05-10] MEDS: ENOXAPARIN 30MG/0.3ML SYR SUBCUT SCH (09:13)
[2019-05-10] MEDS: INSULIN LISPRO 100 UNITS/ML SUBCUT SCH ×3 (09:17→17:21)
[2019-05-10 12:00] VITALS: BP 116/66
[2019-05-10] MEDS: HYDROCODONE/ACETAMINOPHEN 5/325MG TABLET PO PRN (14:06)
[2019-05-10 16:00] VITALS: BP 129/63
== END 2019-05-10 18:00 | disposition left against medical advice (07) | DRG 304 ==
LOC: ER 13:28 → 6WST 05-08 01:48 → EDBEDREQ 05-08 01:50 → EDBEDREQTM 05-08 01:50 → ENRESERV 05-08 06:14
PROVIDERS: ADMIT Family Medicine Adult Medicine; ATTEND Family Medicine Adult Medicine
PROC: 5A1D70Z Performance of Urinary Filtration, Intermittent, Less than 6 Hours Per Day (ICD-10-PCS; principal; 2019-05-10)
DX: I16.9 Hypertensive crisis, unspecified (principal); N18.6 End stage renal disease; I24.8 Other forms of acute ischemic heart disease; E87.1 Hypo-osmolality and hyponatremia; E44.1 Mild protein-calorie malnutrition; I12.0 Hypertensive chronic kidney disease with stage 5 chronic kidney disease or end stage renal disease; Z99.2 Dependence on renal dialysis; E78.5 Hyperlipidemia, unspecified; D63.8 Anemia in other chronic diseases classified elsewhere; G89.29 Other chronic pain; K21.9 Gastro-esophageal reflux disease without esophagitis; Z53.29 Procedure and treatment not carried out because of patient's decision for other reasons; I25.10 Atherosclerotic heart disease of native coronary artery without angina pectoris; E11.22 Type 2 diabetes mellitus with diabetic chronic kidney disease; Z95.5 Presence of coronary angioplasty implant and graft; I51.7 Cardiomegaly; Z68.20 Body mass index [BMI] 20.0-20.9, adult; Z79.899 Other long term (current) drug therapy; Z88.8 Allergy status to other drugs, medicaments and biological substances; Z91.041 Radiographic dye allergy status; Z79.02 Long term (current) use of antithrombotics/antiplatelets; Z79.84 Long term (current) use of oral hypoglycemic drugs; I25.2 Old myocardial infarction
CPT/HCPCS: 36415; 71045; 72141; 72148; 80048; 80053; 82550; 82553; 82962; 83880; 84484; 85025; 93005; 93306; 96372; 97162; 99285; J1650; J1815

== ENCOUNTER 2019-05-17 12:27 | Inpatient (IN) | payer MEDICARE, MEDICAID ==
[~2019-05-17] VITALS: Ht 175.3 cm; Wt 66.9 kg
[2019-05-17] MEDS ORDERED: LORAZEPAM 2MG/ML CPJ IV ONE (13:45)
[2019-05-17 13:55] LABS: BASOPHILS % 0.5 % (0.0-2.0); EOSINOPHILS % 3.9 % (0.0-5.0); HEMOGLOBIN. 11.8 g/dL (14.0-18.0); LYMPHOCYTES % 16.8 % (20.0-50.0); MEAN CORPUSCULAR HEMOGLOBIN 33.2 pg (28.0-32.0); MEAN CORPUSCULAR VOLUME 98.1 fL (80.0-94.0); MEAN PLATELET VOLUME 7.5 fl (7.4-10.4); MONOCYTES % 10.3 % (2.0-8.0); NEUTROPHILS % 68.5 % (40.0-76.0); PLATELET 144 x1000/uL (130-400); RED BLOOD CELL COUNT 3.57 mill/uL (4.7-6.1); RED CELL DISTRIBUTION WIDTH 20.6 % (11.6-14.6)
[2019-05-17 13:59] LABS: CHLORIDE 99 mEq/L (98-107); PARTIAL THROMBOPLASTIN TIME 26.2 sec (23.4-31.0); PROTHROMBIN TIME 10.5 sec (9.6-11.0)
[2019-05-17] MEDS ORDERED: ALBUTEROL (0.083%) 2.5MG/3ML NEB HHN ONE (15:15)
[2019-05-17] MEDS ORDERED: CALCIUM GLUCONATE 1,000 MG in DEXTROSE 5% WATER 50 ML IV ONE (15:15)
[2019-05-17] MEDS ORDERED: SODIUM BICARBONATE 8.4% 1 MEQ/ML 50ML SYR IV ONE (15:15)
[2019-05-17] MEDS ORDERED: INSULIN REGULAR (HUMULIN R) 300UNITS/3ML IV ONE (15:15)
[2019-05-17] MEDS ORDERED: DEXTROSE 50% WATER 50ML SYRINGE IV ONE (15:15)
[2019-05-17] MEDS ORDERED: SODIUM POLYSTYRENE SULFONATE 15 G/60 ML BOT PO ONE (15:15)
[2019-05-17] MEDS ORDERED: ALBUTEROL (0.083%) 2.5MG/3ML NEB ONE (15:41)
[2019-05-17] MEDS ORDERED: ALBUTEROL (0.5%) 2.5MG/0.5ML NEB HHN ONE (15:42)
[2019-05-17] MEDS ORDERED: ASPIRIN 325MG EC TABLET PO ONE (15:45)
[2019-05-18 06:10] VITALS: BP 157/92
[2019-05-18 08:00] VITALS: BP 132/68
[2019-05-18] MEDS ORDERED: DEXTROSE 50% WATER 50ML SYRINGE IV PRN (09:45)
[2019-05-18] MEDS ORDERED: CLOPIDOGREL 75MG TABLET PO ONE (09:45)
[2019-05-18] MEDS ORDERED: ONDANSETRON HCL 4MG/2ML INJ IV PRN (09:45)
[2019-05-18] MEDS ORDERED: ACETAMINOPHEN 325MG TABLET PO PRN (09:45)
[2019-05-18] MEDS: ENOXAPARIN 30MG/0.3ML SYR SUBCUT SCH (09:56)
[2019-05-18] MEDS: CLOPIDOGREL 75MG TABLET PO SCH (10:03)
[2019-05-18 12:00] VITALS: BP 148/70
[2019-05-18] MEDS: BLOOD SUGAR DIAGNOSTIC STRIP TEST SCH ×3 (12:40→20:59)
[2019-05-18] MEDS: INSULIN LISPRO 100 UNITS/ML SUBCUT SCH ×3 (13:48→21:00)
[2019-05-18 16:00] VITALS: BP 124/68
[2019-05-18 19:01] LABS: BASOPHILS % 0.5 % (0.0-2.0); EOSINOPHILS % 5.4 % (0.0-5.0); HEMATOCRIT. 36.7 % (42.0-52.0); HEMOGLOBIN. 12.1 g/dL (14.0-18.0); LYMPHOCYTES % 31.2 % (20.0-50.0); MEAN CORPUSCULAR HEMOGLOBIN 32.5 pg (28.0-32.0); MEAN CORPUSCULAR VOLUME 98.6 fL (80.0-94.0); MEAN PLATELET VOLUME 7.6 fl (7.4-10.4); MONOCYTES % 14.2 % (2.0-8.0); NEUTROPHILS % 48.7 % (40.0-76.0); PLATELET 157 x1000/uL (130-400); RED BLOOD CELL COUNT 3.73 mill/uL (4.7-6.1)
[2019-05-18 20:00] VITALS: BP 116/69
[2019-05-18] MEDS: CARVEDILOL 6.25 MG TABLET PO SCH (20:59)
[2019-05-19] VITALS: BP 137/70
[2019-05-19 04:00] VITALS: BP 150/79
[2019-05-19] MEDS: BLOOD SUGAR DIAGNOSTIC STRIP TEST SCH ×4 (06:49→21:38)
[2019-05-19 08:00] VITALS: BP 143/74
[2019-05-19] MEDS: CARVEDILOL 6.25 MG TABLET PO SCH ×2 (09:00→21:38)
[2019-05-19] MEDS: LOSARTAN POTASSIUM 25 MG TABLET PO SCH (09:00)
[2019-05-19] MEDS: CLOPIDOGREL 75MG TABLET PO SCH (09:08)
[2019-05-19] MEDS: ENOXAPARIN 30MG/0.3ML SYR SUBCUT SCH (09:09)
[2019-05-19] MEDS: INSULIN LISPRO 100 UNITS/ML SUBCUT SCH ×4 (09:16→21:38)
[2019-05-19 10:04] LABS: BASOPHILS % 0.4 % (0.0-2.0); EOSINOPHILS % 5.7 % (0.0-5.0); HEMATOCRIT. 33.5 % (42.0-52.0); HEMOGLOBIN. 11.3 g/dL (14.0-18.0); LYMPHOCYTES % 31.3 % (20.0-50.0); MEAN CORPUSCULAR HEMOGLOBIN 32.5 pg (28.0-32.0); MEAN CORPUSCULAR VOLUME 96.8 fL (80.0-94.0); NEUTROPHILS % 50.6 % (40.0-76.0); RED BLOOD CELL COUNT 3.46 mill/uL (4.7-6.1); RED CELL DISTRIBUTION WIDTH 21.1 % (11.6-14.6)
[2019-05-19 10:37] LABS: ETHANOL BLOOD < 10 mg/dL
[2019-05-19 10:40] LABS: PLATELET 135 x1000/uL (130-400)
[2019-05-19 10:43] LABS: T4 FREE 0.97 ng/dL (0.76-1.46)
[2019-05-19 10:55] LABS: FOLIC ACID (FOLATE) SERUM 16.7 ng/mL (>5.38)
[2019-05-19 12:00] VITALS: BP 131/88
[2019-05-19 16:00] VITALS: BP 155/88
[2019-05-19 20:00] VITALS: BP 158/79
[2019-05-20] VITALS: BP 137/83
[2019-05-20 04:00] VITALS: BP 131/62
[2019-05-20] MEDS: BLOOD SUGAR DIAGNOSTIC STRIP TEST SCH (07:43)
[2019-05-20 08:00] VITALS: BP 123/91
[2019-05-20] MEDS: INSULIN LISPRO 100 UNITS/ML SUBCUT SCH (08:26)
[2019-05-20] MEDS: LOSARTAN POTASSIUM 25 MG TABLET PO SCH (08:40)
[2019-05-20] MEDS: CARVEDILOL 6.25 MG TABLET PO SCH (08:41)
[2019-05-20 09:42] VITALS: BP 123/91
[2019-05-20] MEDS: ENOXAPARIN 30MG/0.3ML SYR SUBCUT SCH (10:00)
[2019-05-23 04:08] LABS: BARBITURATE SCREEN Negative ug/mL (Cutoff:0.1); BENZODIAZEPINE SCREEN Negative ng/mL (Cutoff:20); OPIATES SCREEN Negative ng/mL (Cutoff:5); PHENCYCLIDINE SCREEN Negative ng/mL (Cutoff:8)
[2019-06-02] MEDS ORDERED: LEVO500T2 MT (12:18)
[2019-06-02] MEDS ORDERED: GLIP5TAB12 MT (12:18)
[2019-06-02] MEDS ORDERED: LOSA100T32 MT (12:18)
[2019-06-02] MEDS ORDERED: CALC667T6 PO (12:18)
[2019-06-02] MEDS ORDERED: CARV25TA47 PO (12:18)
[2019-06-02] MEDS ORDERED: CALC-3 PO (12:18)
[2019-06-02] MEDS ORDERED: CLOP75TA33 PO (12:18)
== END 2019-05-20 13:00 | disposition home or self-care (01) | DRG 69 ==
LOC: ER 12:27 → 7WST 17:15 → ENRESERV 05-18 05:03
PROVIDERS: ADMIT Internal Medicine Nephrology; ATTEND Internal Medicine Nephrology
PROC: 5A1D70Z Performance of Urinary Filtration, Intermittent, Less than 6 Hours Per Day (ICD-10-PCS; 2019-05-19)
PROC: 4A10X4Z Monitoring of Central Nervous Electrical Activity, External Approach (ICD-10-PCS; principal; 2019-05-20)
DX: G45.9 Transient cerebral ischemic attack, unspecified (principal); I50.23 Acute on chronic systolic (congestive) heart failure; N18.6 End stage renal disease; I13.2 Hypertensive heart and chronic kidney disease with heart failure and with stage 5 chronic kidney disease, or end stage renal disease; E87.1 Hypo-osmolality and hyponatremia; I42.9 Cardiomyopathy, unspecified; R26.89 Other abnormalities of gait and mobility; D63.8 Anemia in other chronic diseases classified elsewhere; E11.22 Type 2 diabetes mellitus with diabetic chronic kidney disease; E78.5 Hyperlipidemia, unspecified; I08.1 Rheumatic disorders of both mitral and tricuspid valves; E78.00 Pure hypercholesterolemia, unspecified; E87.5 Hyperkalemia; I25.10 Atherosclerotic heart disease of native coronary artery without angina pectoris; I27.20 Pulmonary hypertension, unspecified; Z99.2 Dependence on renal dialysis; Z86.73 Personal history of transient ischemic attack (TIA), and cerebral infarction without residual deficits; Z88.8 Allergy status to other drugs, medicaments and biological substances; Z79.899 Other long term (current) drug therapy; Z79.02 Long term (current) use of antithrombotics/antiplatelets; Z79.82 Long term (current) use of aspirin
CPT/HCPCS: 36415; 70544; 70551; 71045; 80048; 80053; 80061; 80307; 80320; 82607; 82746; 82962; 83036; 83735; 83880; 84439; 84443; 84481; 84484; 85025; 92610; 93005; 93880; 94640; 97162; 97166; 99285; J0610; J1650; J1815; J2060; J3490; J7060; G0480

== ENCOUNTER 2019-06-18 21:17 | Emergency (ER) | payer MEDICARE, MEDICAID ==
[~2019-06-18] VITALS: Ht 162.6 cm; Wt 57.0 kg
[~2019-06-18 21:17] MED LIST changes: -AMLO5TAB4 PO; +GLIP5TAB12 MT; -GLIP5TAB12 PO; +LEVO500T2 MT; +LOSA100T32 MT
[2019-06-18] MEDS ORDERED: ASPIRIN 81MG TABLET PO ONE (23:15)
[2019-06-18 23:40] LABS: CHLORIDE 99 mEq/L (98-107)
[2019-06-18 23:48] LABS: BASOPHILS % 0.5 % (0.0-2.0); EOSINOPHILS % 1.4 % (0.0-5.0); HEMATOCRIT. 36.5 % (42.0-52.0); HEMOGLOBIN. 11.9 g/dL (14.0-18.0); LYMPHOCYTES % 15.8 % (20.0-50.0); MEAN CORPUSCULAR HEMOGLOBIN 30.9 pg (28.0-32.0); MEAN PLATELET VOLUME 7.9 fl (7.4-10.4); MONOCYTES % 8.2 % (2.0-8.0); NEUTROPHILS % 74.1 % (40.0-76.0); PLATELET 131 x1000/uL (130-400); RED BLOOD CELL COUNT 3.84 mill/uL (4.7-6.1); RED CELL DISTRIBUTION WIDTH 20.5 % (11.6-14.6)
[2019-06-19] MEDS ORDERED: VANCOMYCIN 1 G PREMIX 200 ML IV NR (01:30)
[2019-06-19] MEDS ORDERED: PIPERACILLIN/TAZOBACTAM 3.375GM/50ML PREMIX IV ONE (01:30)
[2019-06-19] MEDS ORDERED: PIPERACILLIN/TAZOBACTAM 2.25 G in DEXTROSE 5% WATER 50 ML IV NR (02:00)
[2019-06-19 11:43] VITALS: BP 179/91
[2019-06-19] MEDS ORDERED: LEVO500T2 MT (11:50)
[2019-06-19] MEDS ORDERED: ONDANSETRON HCL 4MG/2ML INJ IV PRN (12:00)
[2019-06-19] MEDS ORDERED: ACETAMINOPHEN 325MG TABLET PO PRN (12:00)
[2019-06-19] MEDS ORDERED: PIPERACILLIN/TAZOBACTAM 3.375 G in DEXT 5% WATER 100 ML IV SCH (12:00)
[2019-06-19] MEDS ORDERED: LOSARTAN POTASSIUM 50 MG TABLET PO SCH (12:00)
[2019-06-19] MEDS ORDERED: AMLODIPINE 5MG TABLET PO SCH (21:00)
[2019-06-19] MEDS ORDERED: CARVEDILOL 12.5MG TABLET PO SCH (21:00)
== END 2019-06-19 11:45 | disposition left against medical advice (07) ==
LOC: ER 21:17 → ENRESERV 06-19 11:48 → CANRESERV 06-19 11:48 → CANBEDREQ 06-19 12:20
DX: A41.9 Sepsis, unspecified organism (principal); I13.2 Hypertensive heart and chronic kidney disease with heart failure and with stage 5 chronic kidney disease, or end stage renal disease; N18.6 End stage renal disease; I50.40 Unspecified combined systolic (congestive) and diastolic (congestive) heart failure; E11.22 Type 2 diabetes mellitus with diabetic chronic kidney disease; Z99.2 Dependence on renal dialysis; D63.8 Anemia in other chronic diseases classified elsewhere; Z79.4 Long term (current) use of insulin; E78.5 Hyperlipidemia, unspecified; I34.0 Nonrheumatic mitral (valve) insufficiency; I27.20 Pulmonary hypertension, unspecified; M19.90 Unspecified osteoarthritis, unspecified site; Z79.899 Other long term (current) drug therapy; Z79.82 Long term (current) use of aspirin; Z88.8 Allergy status to other drugs, medicaments and biological substances; Z91.041 Radiographic dye allergy status
CPT/HCPCS: 36415; 71045; 80053; 83605; 83880; 84145; 84484; 85025; 87040; 93005; 99285; J2543; J3370; J7060

== ENCOUNTER 2019-07-21 12:30 | Inpatient (IN) | payer MEDICARE, MEDICAID ==
[~2019-07-21] VITALS: Ht 162.6 cm; Wt 73.0 kg
[2019-07-21 14:18] LABS: BASOPHILS % 0.6 % (0.0-2.0); EOSINOPHILS % 1.6 % (0.0-5.0); HEMATOCRIT. 32.2 % (42.0-52.0); HEMOGLOBIN. 10.5 g/dL (14.0-18.0); LYMPHOCYTES % 17.6 % (20.0-50.0); MEAN CORPUSCULAR HEMOGLOBIN 28.4 pg (28.0-32.0); MEAN CORPUSCULAR VOLUME 87.2 fL (80.0-94.0); MEAN PLATELET VOLUME 7.8 fl (7.4-10.4); MONOCYTES % 9.9 % (2.0-8.0); NEUTROPHILS % 70.3 % (40.0-76.0); PLATELET 159 x1000/uL (130-400); RED CELL DISTRIBUTION WIDTH 20.8 % (11.6-14.6)
[2019-07-21 14:21] LABS: CHLORIDE 97 mEq/L (98-107)
[2019-07-21] MEDS ORDERED: KETOROLAC 30MG/ML VIAL IV NR (15:00)
[2019-07-21 23:00] VITALS: BP 184/102
[2019-07-21] MEDS ORDERED: ACETAMINOPHEN 325MG TABLET PO PRN (23:00)
[2019-07-21] MEDS ORDERED: CLONIDINE 0.1MG TABLET PO PRN (23:00)
[2019-07-21] MEDS ORDERED: ONDANSETRON HCL 4MG/2ML INJ IV PRN (23:00)
[2019-07-21] MEDS ORDERED: HYDROCODONE/ACETAMINOPHEN 5/325MG TABLET PO PRN (23:00)
[2019-07-21] MEDS ORDERED: MORPHINE SULFATE 2 MG/ML CPJ (NOT FOR IM USE) IV PRN (23:00)
[2019-07-21] MEDS ORDERED: IPRATROPIUM/ALBUTEROL 0.5-3(2.5)MG/3ML NEB NEB PRN (23:00)
[2019-07-21] MEDS ORDERED: NITROGLYCERIN 0.4MG TABLET SL SL PRN (23:00)
[2019-07-22] VITALS: BP 157/88
[2019-07-22] MEDS: LORAZEPAM 2MG/ML CPJ IV PRN ×2 (00:41→22:34)
[2019-07-22] MEDS ORDERED: DEXTROSE 50% WATER 50ML SYRINGE IV PRN (03:15)
[2019-07-22 04:00] VITALS: BP 141/85
[2019-07-22] MEDS: BLOOD SUGAR DIAGNOSTIC STRIP TEST SCH ×4 (07:01→21:21)
[2019-07-22] MEDS: INSULIN LISPRO 100 UNITS/ML SUBCUT SCH ×4 (07:10→21:00)
[2019-07-22 08:00] VITALS: BP 133/85
[2019-07-22] MEDS ORDERED: TRAMADOL 50MG TABLET PO PRN (08:00)
[2019-07-22] MEDS ORDERED: ASPIRIN 81MG EC TABLET PO SCH (09:00)
[2019-07-22] MEDS: ASPIRIN 81MG EC TABLET PO SCH (10:07)
[2019-07-22] MEDS: CLOPIDOGREL 75MG TABLET PO SCH (10:07)
[2019-07-22] MEDS: ONDANSETRON HCL 4MG TABLET PO SCH ×3 (10:08→17:00)
[2019-07-22] MEDS: ISOSORBIDE DINITRATE 30MG TABLET PO SCH (10:08)
[2019-07-22] MEDS: GLIPIZIDE 5MG TABLET PO SCH (10:08)
[2019-07-22] MEDS: LOSARTAN POTASSIUM 100 MG TABLET PO SCH (10:08)
[2019-07-22] MEDS: CINACALCET HCL 60MG TABLET PO SCH (10:08)
[2019-07-22] MEDS: ENOXAPARIN 30MG/0.3ML SYR SUBCUT SCH (10:09)
[2019-07-22 12:00] VITALS: BP 126/84
[2019-07-22] MEDS ORDERED: REGADENOSON 0.4 MG/5 ML IV NR (12:45)
[2019-07-22 16:00] VITALS: BP 131/83
[2019-07-22 16:09] LABS: CREATINE KINASE MB FRACTION 6.9 ng/mL (0.5-3.6)
[2019-07-22 20:00] VITALS: BP 153/89
[2019-07-22] MEDS: INSULIN GLARGINE UD 100 UNITS/ML SYR SUBCUT SCH (21:47)
[2019-07-22] MEDS: CARVEDILOL 3.125 MG TABLET PO SCH (21:53)
[2019-07-22] MEDS: ATORVASTATIN CALCIUM 10MG TABLET PO SCH (21:53)
[2019-07-23] VITALS: BP 115/74
[2019-07-23 04:00] VITALS: BP 106/64
[2019-07-23] MEDS: BLOOD SUGAR DIAGNOSTIC STRIP TEST SCH ×4 (05:36→20:40)
[2019-07-23] MEDS: INSULIN LISPRO 100 UNITS/ML SUBCUT SCH ×4 (05:36→21:04)
[2019-07-23 08:05] LABS: BASOPHILS % 0.7 % (0.0-2.0); EOSINOPHILS % 3.6 % (0.0-5.0); HEMATOCRIT. 30.5 % (42.0-52.0); HEMOGLOBIN. 9.7 g/dL (14.0-18.0); LYMPHOCYTES % 12.9 % (20.0-50.0); MEAN CORPUSCULAR HEMOGLOBIN 27.7 pg (28.0-32.0); MEAN CORPUSCULAR VOLUME 87.3 fL (80.0-94.0); MEAN PLATELET VOLUME 7.1 fl (7.4-10.4); MONOCYTES % 8.6 % (2.0-8.0); NEUTROPHILS % 74.2 % (40.0-76.0); PLATELET 173 x1000/uL (130-400); RED BLOOD CELL COUNT 3.49 mill/uL (4.7-6.1); RED CELL DISTRIBUTION WIDTH 20.4 % (11.6-14.6)
[2019-07-23] MEDS: CINACALCET HCL 60MG TABLET PO SCH (09:00)
[2019-07-23] MEDS: ASPIRIN 81MG EC TABLET PO SCH (09:00)
[2019-07-23] MEDS: LOSARTAN POTASSIUM 100 MG TABLET PO SCH (09:00)
[2019-07-23] MEDS: CLOPIDOGREL 75MG TABLET PO SCH (09:00)
[2019-07-23] MEDS: ONDANSETRON HCL 4MG TABLET PO SCH ×3 (09:00→17:38)
[2019-07-23] MEDS: GLIPIZIDE 5MG TABLET PO SCH (09:00)
[2019-07-23] MEDS: ISOSORBIDE DINITRATE 30MG TABLET PO SCH (09:00)
[2019-07-23] MEDS: CARVEDILOL 3.125 MG TABLET PO SCH ×2 (09:00→21:00)
[2019-07-23] MEDS: INSULIN GLARGINE UD 100 UNITS/ML SYR SUBCUT SCH ×2 (09:12→21:03)
[2019-07-23] MEDS: ENOXAPARIN 30MG/0.3ML SYR SUBCUT SCH (09:33)
[2019-07-23] MEDS ORDERED: REGADENOSON 0.4 MG/5 ML IV ONE (11:24)
[2019-07-23 12:00] VITALS: BP 149/88
[2019-07-23 16:00] VITALS: BP 151/90
[2019-07-23 20:00] VITALS: BP 123/84
[2019-07-23] MEDS: ATORVASTATIN CALCIUM 10MG TABLET PO SCH (21:05)
[2019-07-24] VITALS: BP 154/85
[2019-07-24 04:00] VITALS: BP 159/89
[2019-07-24] MEDS: BLOOD SUGAR DIAGNOSTIC STRIP TEST SCH (06:14)
[2019-07-24] MEDS: INSULIN LISPRO 100 UNITS/ML SUBCUT SCH (06:14)
[2019-07-24 08:00] VITALS: BP 157/95
[2019-07-24] MEDS: ASPIRIN 81MG EC TABLET PO SCH (09:37)
[2019-07-24] MEDS: LOSARTAN POTASSIUM 100 MG TABLET PO SCH (09:37)
[2019-07-24] MEDS: CLOPIDOGREL 75MG TABLET PO SCH (09:37)
[2019-07-24] MEDS: CINACALCET HCL 60MG TABLET PO SCH (09:37)
[2019-07-24] MEDS: CARVEDILOL 3.125 MG TABLET PO SCH (09:37)
[2019-07-24] MEDS: GLIPIZIDE 5MG TABLET PO SCH (09:37)
[2019-07-24] MEDS: ISOSORBIDE DINITRATE 30MG TABLET PO SCH (09:37)
[2019-07-24 11:07] VITALS: BP 157/9
== END 2019-07-24 12:00 | disposition home or self-care (01) | DRG 291 ==
LOC: ER 12:53 → 5WST 15:16 → EDBEDREQ 15:22 → EDBEDREQTM 15:22 → ENRESERV 21:16
PROVIDERS: ADMIT Internal Medicine Nephrology; ATTEND Internal Medicine Nephrology
PROC: 5A1D70Z Performance of Urinary Filtration, Intermittent, Less than 6 Hours Per Day (ICD-10-PCS; principal; 2019-07-23)
DX: I13.2 Hypertensive heart and chronic kidney disease with heart failure and with stage 5 chronic kidney disease, or end stage renal disease (principal); I50.23 Acute on chronic systolic (congestive) heart failure; N18.6 End stage renal disease; E44.1 Mild protein-calorie malnutrition; E87.1 Hypo-osmolality and hyponatremia; I25.119 Atherosclerotic heart disease of native coronary artery with unspecified angina pectoris; D63.8 Anemia in other chronic diseases classified elsewhere; E11.22 Type 2 diabetes mellitus with diabetic chronic kidney disease; E78.5 Hyperlipidemia, unspecified; R79.89 Other specified abnormal findings of blood chemistry; E87.8 Other disorders of electrolyte and fluid balance, not elsewhere classified; J44.9 Chronic obstructive pulmonary disease, unspecified; I08.1 Rheumatic disorders of both mitral and tricuspid valves; I25.5 Ischemic cardiomyopathy; M19.90 Unspecified osteoarthritis, unspecified site; I27.20 Pulmonary hypertension, unspecified; Z79.4 Long term (current) use of insulin; Z86.73 Personal history of transient ischemic attack (TIA), and cerebral infarction without residual deficits; Z95.5 Presence of coronary angioplasty implant and graft; Z99.2 Dependence on renal dialysis; I25.2 Old myocardial infarction; Z82.49 Family history of ischemic heart disease and other diseases of the circulatory system; Z88.8 Allergy status to other drugs, medicaments and biological substances; Z91.041 Radiographic dye allergy status; Z68.27 Body mass index [BMI] 27.0-27.9, adult; Z79.899 Other long term (current) drug therapy; Z79.82 Long term (current) use of aspirin
CPT/HCPCS: 36415; 71045; 78452; 80048; 80053; 82550; 82553; 82962; 83036; 83880; 84484; 85025; 93005; 93017; 99285; A9500; J1650; J1815; J1885; J2060; J2270; J2405; J2785; Q0162